=== PATIENT | male | born 1955 | race Asian ===

== ENCOUNTER 2020-04-14 09:40 | Outpatient (NON) | payer BC, SELFPAY ==
[2020-04-14 22:05] LABS: SARS-CoV-2 RNA PCR Negative
== END 2020-04-14 09:41 ==
PROVIDERS: PCP Emergency Medicine; Visit Provider Emergency Medicine
DX: Z20.822 Contact with and (suspected) exposure to COVID-19 (principal)
CPT/HCPCS: C9803; U0003; U0005

== ENCOUNTER → 2020-10-18 06:37 | Outpatient (CLI) | payer MEDICARE, SELFPAY ==
[2020-10-18 18:26] LABS: SARS-CoV-2 RNA PCR Negative
== END ==
PROVIDERS: PCP Family Medicine; Visit Provider Nurse Practitioner Family
DX: R05 Cough (principal); Z20.822 Contact with and (suspected) exposure to COVID-19
CPT/HCPCS: C9803; U0003; U0005

== ENCOUNTER → 2021-02-18 02:32 | Outpatient (CLI) | payer MEDICARE, SELFPAY ==
[2021-02-18 17:58] LABS: SARS-CoV-2 RNA PCR Negative
== END ==
PROVIDERS: PCP Family Medicine; Visit Provider Family Medicine
DX: R05.9 Cough, unspecified (principal); Z20.822 Contact with and (suspected) exposure to COVID-19
CPT/HCPCS: C9803; U0003; U0005

== ENCOUNTER → 2021-03-17 09:02 | Outpatient (CLI) | payer MEDICARE, SELFPAY ==
[2021-03-18 13:32] LABS: SARS-CoV-2 RNA PCR Negative
== END ==
PROVIDERS: PCP Family Medicine; Visit Provider Nurse Practitioner
DX: Z20.822 Contact with and (suspected) exposure to COVID-19 (principal)
CPT/HCPCS: C9803; U0003; U0005

== ENCOUNTER 2021-05-04 08:27 | Outpatient (CLI) | payer MEDICARE, SELFPAY ==
--- NOTE | ~2021-05-04 | NM_ITS ---
EXAMINATION: NM stress w perf spect multi DATE: 05/04/2021 11:06 INDICATION: Other chest pain. TECHNIQUE: Rest images were obtained following intravenous administration of 11.5 mCi Tc99m tetrofosm in (Myoview). The patient performed an exercise activity. At peak exercise, 34.3 mCi Tc99m tetrofosmi n (Myoview) was administered intravenously, and stress images were obtained. Data was reconstructed i nto short axis and horizontal and vertical long axis SPECT images. Gated SPECT images were also obtai mayo. COMPARISON: CT abdomen 09/29/2009 FINDINGS: There is no definite reversible or fixed perfusion abnormality to suggest ischemia or infar ction. There is no segmental wall motion abnormality. Left ventricular ejection fraction measures > 70%. IMPRESSION: 1. No definite ischemia or infarct. 2. Normal left ventricular ejection fraction measuring >70%. Reviewed, dictated and finalized at location A. ALMIC TECH
--- NOTE | 2021-05-04 08:55 | EST_ITS ---
Patient Info Name: Lj Rouse Age: 65 years : 1955 Gender: Male Ht: 64 in Wt: 138 lbs BSA: 1.69 m2 HR: 80 bpm BP: 153 / 76 mmHg Heart Rhythm: Sinus Rhythm Exam Date: 05/04/2021 10:00 AM Exam Location: [facility] Stress Patient Status: Outpatient Admit Date: 05/04/2021 Staff Ordering Physician: Nelson Ayala MD Attending Provider: Nelson Ayala MD Exercise Technologist: Tash Stock CT Exercise Physician: Tim Norton DO Exam Type: CA stress test treadmill w NM Study Info Indications R07.9 - Chest pain, unspecified A nuclear stress test was performed. Summary 1. 1. Negative Ry exercise stress test for ischemic ST changes by ECG criteria. 2. 2. Good functional capacity, achieving 12 METs of workload. 3. 3. Appropriate HR response to exercise. 4. 4. Appropriate HR recovery at 1 minute post exercise. 5. 5. Nuclear scan to follow and will be reported separately. Please correlate with it. 6. 6. Patient informed of the above results. Protocol: Ry Stress ECG Details Stage: REST Duration (min): 8 min : 46 sec Speed (mph): 0.0 Grade (%): 0 HR (bpm): 76 SBP (mmHg): 153 DBP (mmHg): 76 METS: --- Stage: STAGE 1 Duration (min): 1 min : 0 sec Speed (mph): 1.7 Grade (%): 10 HR (bpm): 88 SBP (mmHg): 153 DBP (mmHg): 76 METS: --- Stage: STAGE 1 Duration (min): 2 min : 0 sec Speed (mph): 1.7 Grade (%): 10 HR (bpm): 94 SBP (mmHg): 153 DBP (mmHg): 76 METS: --- Stage: STAGE 1 Duration (min): 3 min : 0 sec Speed (mph): 1.7 Grade (%): 10 HR (bpm): 98 SBP (mmHg): 177 DBP (mmHg): 72 METS: --- Stage: STAGE 2 Duration (min): 1 min : 0 sec Speed (mph): 2.5 Grade (%): 12 HR (bpm): 99 SBP (mmHg): 177 DBP (mmHg): 72 METS: --- Stage: STAGE 2 Duration (min): 2 min : 0 sec Speed (mph): 2.5 Grade (%): 12 HR (bpm): 100 SBP (mmHg): 153 DBP (mmHg): 73 METS: --- Stage: STAGE 2 Duration (min): 3 min : 0 sec Speed (mph): 2.5 Grade (%): 12 HR (bpm): 108 SBP (mmHg): 153 DBP (mmHg): 73 METS: --- Stage: STAGE 3 Duration (min): 1 min : 0 sec Speed (mph): 3.4 Grade (%): 14 HR (bpm): 117 SBP (mmHg): 164 DBP (mmHg): 78 METS: --- Stage: STAGE 3 Duration (min): 2 min : 0 sec Speed (mph): 3.4 Grade (%): 14 HR (bpm): 126 SBP (mmHg): 164 DBP (mmHg): 78 METS: --- Stage: STAGE 3 Duration (min): 3 min : 0 sec Speed (mph): 3.4 Grade (%): 14 HR (bpm): 131 SBP (mmHg): 174 DBP (mmHg): 78 METS: --- Stage: STAGE 4 Duration (min): 1 min : 0 sec Speed (mph): 4.2 Grade (%): 16 HR (bpm): 149 SBP (mmHg): 174 DBP (mmHg): 78 METS: --- Stage: STAGE 4 Duration (min): 1 min : 0 sec Speed (mph): 4.2 Grade (%): 16 HR (bpm): 149 SBP (mmHg): 174 DBP (mmHg):
== END 2021-05-04 08:28 | disposition home or self-care (01) ==
PROVIDERS: PCP Family Medicine; Visit Provider Family Medicine
DX: R07.89 Other chest pain (principal)
CPT/HCPCS: 78452; 93017; A9502

== ENCOUNTER → 2021-08-04 12:16 | Outpatient (CLI) | payer MEDICARE, SELFPAY ==
--- NOTE | ~2021-08-04 | XR_ITS ---
EXAMINATION: XR chest 2V DATE: 08/04/2021 12:28 INDICATION: Cough, unspecified. TECHNIQUE: Frontal and lateral views of the chest were obtained. COMPARISON: CT abdomen 09/29/2009 FINDINGS: The chest demonstrates clear lungs without pneumonia, pleural effusion, or pneumothorax. Th e heart size is normal. IMPRESSION: 1. No acute cardiopulmonary disease. Reviewed, dictated and finalized at location B.
== END ==
PROVIDERS: PCP Family Medicine; Visit Provider Family Medicine
DX: R05.9 Cough, unspecified (principal)
CPT/HCPCS: 71046

== ENCOUNTER 2022-03-02 11:00 | Outpatient (RCR) | payer MEDICARE, SELFPAY ==
--- NOTE | 2022-02-18 15:42 | PTOPEVAL1 ---
Assessment and note entered by Jordyn Rubi, PT Evaluation Information Assessment Status Evaluation Diagnosis dizziness and giddiness Onset Jan 2022 Subjective Information Reports has had ear fullness multiple times before . Has had dizziness but usually goes away quickly. Also feels this comes on with the cold weather Reported Pain Level Pain Score 0: Self Report Assessment PT Clinical Summary Pt presents w/ c/o dizziness that began approx one month ago. He has since seen his eye doctor and had normal findings. Reports his ENT saw discoloration in his right ear. He reports had a dose of anti-biotics that significantly reduced his symptoms. He tried Meclazine for symptoms but it made him drowsy. He reports right ear aural fullness, had (+) symptoms right roll testing and left reverse testing with right downward torsional nystagmus. Pt is also going to be out of town soon and then out of country for multiple months. Significant time spent with patient discussing inner ear anatomy, his current progression of symptoms, compensatory techniques to minimize symptoms, and HEP. Plan of Care Interventions Neuro Re-education,Therapeutic Activities, Therapeutic Exercise PT Services Indicated Yes Treatment Frequency and 2x weekly x 4-6 weeks Duration These treatments will address the objective and functional deficits as defined above. The patient will be advanced safely and appropriately in order for the patient to progress towards his/her prior level of function. Additional exercises will be introduced and as well as a comprehensive home exercise program upon discharge, if needed, ?to ensure carryover of functional gains achieved in the clinic. This treatment plan has been reviewed and agreement upon by the patient.
--- NOTE | 2022-03-04 10:06 | PCPTNOTE ---
Patient and therapist discussed plan after ENT appt. Cancelled secondary to therapist request to assess tolerance to new ENT medication and plan. Advised to call next week and cancel if symptoms have resolved. If not, will continue therapy to prepare for trip overseas.
--- NOTE | 2022-03-30 14:40 | PCPTNOTE ---
Admitting Provider: Attending Provider: Sena Govea NP Patient:Lj Rouse Date of :1955 Patient has not returned for any further treatments since 03/02/2022, therefore (he/she) will be discharged at this time. Patient?s initial visit was on 02/18/2022 09:00. Pt went to ENT who was able to correct dizziness issue. Pt cancelled his reevaluation for today stating he is doing well. Thus pt is being discharged from therapy at this time. Thank you for referring this patient to [facility]. Please review, sign, date and return this discharge summary. I have been updated about the patient's current status and I agree with discharge from the above service at this time. Referring Physician Date
== END 2022-04-13 11:14 | disposition home or self-care (01) ==
LOC: ANHGOSHPT 11:00
PROVIDERS: PCP Family Medicine; Visit Provider Nurse Practitioner
DX: R42 Dizziness and giddiness (principal)
CPT/HCPCS: 97110; 97112; 97162

== ENCOUNTER → 2022-03-24 09:26 | Outpatient (CLI) | payer MEDICARE, SELFPAY ==
--- NOTE | ~2022-03-24 | CT_ITS ---
EXAMINATION: CT sinus wo con DATE: 03/24/2022 09:59 INDICATION: Chronic sinusitis. Nasal polyps. Frequent sinus infections. Vertigo for 9 weeks. TECHNIQUE: Computed tomography (CT) of the paranasal sinuses was performed without contrast. Iterativ e reconstruction technique was employed. Exam dose: 411.72 mGy-cm total exam DLP. COMPARISON: None FINDINGS: There is rightward deviation of the nasal septum. The inferior nasal turbinates are moderat jose angel prominent bilaterally. There is soft tissue thickening in both frontoethmoid areas and prominent patchy soft tissue thickeni ng of the ethmoid septae bilaterally. There is mild mucoperiosteal thickening of both maxillary sinuses. The sphenoid sinuses are normally developed and aerated. The maxillary ostium and infundibulum are patent bilaterally. There is opacification of a couple of posterior left mastoid air cells; the mastoid air cells otherwi se are normally developed and aerated bilaterally. Middle and inner ear apparatus appear normal bilaterally. IMPRESSION: Bilateral frontal, ethmoid and maxillary sinus mucoperiosteal thickening Rightward deviation of nasal septum Reviewed, dictated and finalized at Location A. 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
== END ==
PROVIDERS: PCP Family Medicine; Visit Provider Otolaryngology
DX: J33.9 Nasal polyp, unspecified (principal); J32.9 Chronic sinusitis, unspecified; J34.2 Deviated nasal septum
CPT/HCPCS: 70486

== ENCOUNTER 2022-09-27 08:29 | Day surgery (SDC) | payer MEDICARE, SELFPAY ==
[2022-09-07 14:39] VITALS: BMI 24.2
--- NOTE | 2022-09-24 12:56 | WPDANESEPPF ---
Anes - Initial Pre Proc Eval Procedure: Operation Date: 09/27/22 11:00 Proposed Procedures p Esophagogastroduodenoscopy - Martin Velazquez MD Date/Time: 09/24/22 12:56 Surgeon: Martin Velazquez MD Pre Op Diagnosis: Gerd without Esophagitis, Post Nasal Drip Patient Data Age: 66 Gender: M Height: 1.63 m Weight: 64 kg Allergies Allergy/AdvReac Type Severity Reaction Status Date / Time lisinopril AdvReac Mild Cough Verified 09/27/22 09:51 Home Medications Medication Instructions Recorded Confirmed Type gebbydew-jcknndoz-zdmhc acid 400 1 tablet PO DAILY 05/11/19 09/27/22 History mcg-vit K 20 mcg-lycop 300 mcg tablet (One-A-Day Men's Multivitamin) ascorbate calcium (vitamin C) 500 1 g PO DAILY 02/16/21 09/27/22 History mg tablet blood-glucose meter #1 ea 06/02/21 06/17/22 Rx cetirizine 10 mg capsule (Zyrtec) 10 mg PO DAILY PRN Allergic 08/04/21 09/27/22 History Reaction lancets #200 ea 02/01/22 06/17/22 Rx blood sugar diagnostic #100 ea 03/08/22 06/17/22 Rx pantoprazole 40 mg tablet,delayed 40 mg PO DAILY #90 tabs 06/21/22 09/27/22 Rx release atorvastatin 20 mg tablet 20 mg PO QHS #90 tabs 07/27/22 09/27/22 Rx losartan 25 mg tablet 25 mg PO DAILY #90 tabs 08/31/22 09/27/22 Rx metformin 500 mg tablet,extended 500 mg PO BID 09/07/22 09/27/22 History release 24 hr Patient hx anesthesia problems: none Family hx anesthesia problems: none Results Review: All pre-operative results and documents have been reviewed as part of the pre-operative evaluation. FORMERLY [facility], [facility] Past Medical History Medical History (Updated 09/02/22 @ 13:17 by Martin Velazquez MD) Colon cancer screening Diabetes Diastolic dysfunction Environmental allergies GERD (gastroesophageal reflux disease) HLD (hyperlipidemia) Microalbuminuria Mild aortic stenosis Vocal cord polyps Family History Family History Father Diabetes mellitus Kidney failure Mother Ectopic Social History Social History Smoking status: Never smoker Second hand tobacco smoke exposure: No Alcohol intake: never Substance use: never Substance use type: does not use Lack of Transportation: No Lack of Food: Never True Current Housing: I Have Housing Concerned About Future Housing: No Difficulty Paying Gas/Electric Bills: No Difficulty Paying for Meds: No Currently Unemployed: No Education: Bachelor's Degree Difficulty w/ Childcare or Family Care: No Living arrangements: with family Occupation/Education: retired Gender identity (if verbalized by the patient): Male Sexual Orientation (if Verbalized by the Patient): Straight or Heterosexual Spiritual care concerns: No Agree to blood products: Yes Anes - Eval Final PreProcedure Day of Procedure 09/24/22 12:56 Patient weight: normal Heart: regular rate and rhythm Lungs: clear to auscultation and normal air movement Airway: Mallampati scale class II Neurological: alert and oriented Last oral intake: >/= 8 hours ASA classification: III Emergent: no Anesthetic plan: proceed Anesthesia type and monitoring: general GIVS and standard monitoring Results Review: All pre-operative results and documents have been reviewed as part of the pre-operative evaluation. Informed Consent: The patient's anesthetic plan and its attendant risks and benefits were discussed with the patient/family/POA. Questions were solicited and answers provided to the satisfaction of the patient/family/POA.
[2022-09-27 09:57] VITALS: BP 133/71; PULSE 62; RESP 16; TEMP 36.6; O2SAT 100
[2022-09-27] MEDS: LACTATED RINGERS 1,000 ML 150 ML IV CONT (10:07)
[2022-09-27 10:11] LABS: Glucose Point of Care 128 mg/dl (65-105)
--- NOTE | 2022-09-27 10:35 | WPDHPUPDATE1 ---
History and Physical Update Update Date/Time: 09/27/22 10:35 History and Physical has been reviewed, including an updated exam of the patient. There are NO changes in the patient's condition. Risks, benefits, and alternatives have been discussed and questions answered. Patient agrees to proceed with procedure.
[2022-09-27 10:45] VITALS: BP 103/62; PULSE 69; RESP 16; O2SAT 98
[2022-09-27 10:55] VITALS: BP 101/68; PULSE 64; RESP 16; O2SAT 100
[2022-09-27 11:05] VITALS: BP 114/75; PULSE 65; RESP 16; O2SAT 100
--- NOTE | 2022-09-27 11:11 | WPDANESPN ---
Anes - Prog Note Post-Op Date/Time: 09/27/22 11:11 Cardiovascular status: normal Respiratory status: normal Airway patency: baseline Mental status: baseline Post-Op hydration status: normal Vital Signs: Last Vital Signs Temp 36.6 C 09/27/22 09:57 Pulse 65 09/27/22 11:05 Resp 16 09/27/22 11:05 BP 114/75 09/27/22 11:05 Pulse Ox 100 09/27/22 11:05 O2 Del Method Room Air 09/27/22 11:05 Pain Score (VAS): 0 09/27/22 10:05 POC Capillary Glucose 128 H Post-procedural complaints: none Patient Feedback: Patient satisfied with anesthetic care. Other Findings: Patient vital signs back to baseline. Patient denies nausea and vomiting. Patient's pain under control. Patient OK for discharge.
== END 2022-09-27 11:14 | disposition home or self-care (01) ==
PROVIDERS: PCP Family Medicine; Visit Provider Internal Medicine Gastroenterology
PROC: 0DJ08ZZ Inspection of Upper Intestinal Tract, Via Natural or Artificial Opening Endoscopic (ICD-10-PCS; CPT 43235; principal; 2022-09-27 11:00)
DX: K21.9 Gastro-esophageal reflux disease without esophagitis (principal)
CPT/HCPCS: 43239

== ENCOUNTER 2022-09-27 09:00 | Outpatient (NON) | payer MEDICARE, SELFPAY | END 2022-09-27 09:01 | disposition home or self-care (01) | LOC: ANHLAB 09-28 07:19 | PROVIDERS: PCP Family Medicine; Visit Provider Internal Medicine Gastroenterology | DX: K21.9 Gastro-esophageal reflux disease without esophagitis (principal) | CPT/HCPCS: 88305 ==

== ENCOUNTER 2022-09-27 18:08 | Inpatient (IN) | payer MEDICARE, SELFPAY ==
[2022-09-27] VITALS (22 sets, daily range): BP systolic 84–123; BP diastolic 56–71; PULSE 72–108; RESP 14–19; TEMP 36.8; O2SAT 97–100; BMI 26.9; BMI 24.5
--- NOTE | ~2022-09-27 | XR_ITS ---
EXAMINATION: XR chest 1V portable DATE: 09/27/2022 19:30 INDICATION: Syncope. TECHNIQUE: A single frontal view of the chest was obtained. COMPARISON: Chest 2 views 08/04/2021 FINDINGS: The chest demonstrates clear lungs without pneumonia, pleural effusion, or pneumothorax. Th e heart size is normal. IMPRESSION: 1. No acute cardiopulmonary disease. Reviewed, dictated and finalized at location E.
--- NOTE | ~2022-09-27 | CT_ITS ---
EXAMINATION: CT abdomen pelvis wo con DATE: 09/28/2022 14:10 INDICATION: Acute blood loss. TECHNIQUE: Computed tomography (CT) of the abdomen and pelvis was performed without intravenous contr ast. Automated exposure control and iterative reconstruction technique were employed. The dose-length product was 282.50 mGy-cm. COMPARISON: CT abdomen 09/29/2009 FINDINGS: The visualized portions bases demonstrate mild atelectasis. No pleural effusion. The heart size is normal. There are coronary artery calcifications. No pericardial effusion. The liver, gallbla dder, spleen, pancreas, adrenal glands, and kidneys are normal. There is no urolithiasis. There are n o dilated loops of bowel. The appendix is normal. Aortic atherosclerosis is noted. There are no patho logically enlarged lymph nodes. There is no free intraperitoneal fluid. There is mild lumbar spondylo sis. IMPRESSION: 1. No etiology for anemia. Reviewed, dictated and finalized at location E. IMPRESSION: 1. No etiology for anemia.
--- NOTE | ~2022-09-27 | CT_ITS ---
EXAMINATION: CT brain wo con DATE: 09/27/2022 19:42 INDICATION: Syncope. TECHNIQUE: Computed tomography (CT) of the head was performed without intravenous contrast. The mA wa s adjusted according to patient size. Iterative reconstruction technique was employed. The dose-lengt h product was 605.33 mGy-cm. COMPARISON: None FINDINGS: There is no intracranial hemorrhage, acute infarction, or abnormal intracranial mass lesion . The ventricles are normal in size. There is mucosal thickening in the paranasal sinuses. There is a trace left mastoid effusion. The orbits are normal. IMPRESSION: 1. Normal brain. Reviewed, dictated and finalized at location E. IMPRESSION: 1. Normal brain.
--- NOTE | 2022-09-27 18:50 | ECG_ITS ---
Measurements Intervals [place] Rate: 70 P: 47 AR: 185 QRS: -19 QRSD: 98 T: 43 QT: 362 QTc: 393 Interpretive Statements SINUS RHYTHM INCOMPLETE RIGHT BUNDLE BRANCH BLOCK BORDERLINE R WAVE PROGRESSION, ANTERIOR LEADS BORDERLINE ECG NO PREVIOUS ECG AVAILABLE FOR COMPARISON Electronically Signed On 09-27-2022 21:10:48 CDT by Tim Norton D.O.
--- NOTE | 2022-09-27 19:18 | ED.SYNCOPE ---
HPI - Syncope General Chief Complaint: Syncope Stated Complaint: syncopal episode Time Seen by Provider: 09/27/22 18:28 History of Present Illness HPI narrative: Patient is a 66-year-old male presenting with a syncopal episode. Patient states that he had an endoscopy done this morning. He felt fine other than some epigastric discomfort. He went home and was able to eat a small meal and drink some water. States that he went upstairs to lay down and he then syncopized. States that he remembers feeling a bit lightheaded prior to the episode. States that he was really sweaty afterwards. His heard a thump and went to check on him and found him on the floor. No seizure-like activity. No urinary incontinence or tongue biting. No chest pain or shortness of breath or palpitations. He continues to complain of mild epigastric discomfort but denies further complaints. Related Data Home Medications Medication Instructions Recorded Confirmed jeeknpsc-mangzgnx-qanok acid 400 1 tablet PO DAILY 05/11/19 09/27/22 mcg-vit K 20 mcg-lycop 300 mcg tablet (One-A-Day Men's Multivitamin) ascorbate calcium (vitamin C) 500 1 g PO DAILY 02/16/21 09/27/22 mg tablet dorzolamide 22.3 mg-timolol 6.8 1 drp EACH EYE BID 09/27/22 09/27/22 mg/mL eye drops pantoprazole 40 mg tablet,delayed 20 mg PO BID 09/27/22 09/27/22 release Allergies Allergy/AdvReac Type Severity Reaction Status Date / Time lisinopril AdvReac Mild Cough Verified 09/27/22 09:51 Review of Systems Review of Systems: All systems reviewed & are unremarkable except as noted in HPI and below [facility] Past Medical History Medical History (Updated 10/04/22 @ 16:59 by Alma Grimes MD) Acute blood loss anemia Colon cancer screening Diabetes Diastolic dysfunction Environmental allergies GERD (gastroesophageal reflux disease) HLD (hyperlipidemia) Microalbuminuria Mild aortic stenosis Vocal cord polyps Family History Family History Father Diabetes mellitus Kidney failure Mother Ectopic Social History Social History Smoking status: Never smoker Second hand tobacco smoke exposure: No Alcohol intake: never Substance use: never Substance use type: does not use Lack of Transportation: No Lack of Food: Never True Current Housing: I Have Housing Concerned About Future Housing: No Difficulty Paying Gas/Electric Bills: No Difficulty Paying for Meds: No Currently Unemployed: No Education: Bachelor's Degree Difficulty w/ Childcare or Family Care: No Living arrangements: with family Occupation/Education: retired Gender identity (if verbalized by the patient): Male Sexual Orientation (if Verbalized by the Patient): Straight or Heterosexual Spiritual care concerns: No Agree to blood products: Yes Exam Narrative: GENERAL: Well-appearing, well-nourished, and in no acute distress. Pleasant and cooperative HEAD: Normocephalic, atraumatic. EYES: PERRLA and EOMI. ENT: Nares clear, no rhinorrhea or epistaxis. Mucous membranes moist. NECK: Supple. CHEST: Clear to auscultation. No respiratory distress. HEART: Regular rate and rhythm. No murmur heard ABDOMEN: Soft, nontender, nondistended EXTREMITIES: Normal range of motion. No edema. SKIN: Warm, dry, no rash. NEURO: No focal deficits. Alert and oriented x3. PSYCH: Normal mood and affect. Course Vital Signs Vital signs: Vital Signs Temperature 98.3 F 09/27/22 18:08 Pulse Rate 75 09/27/22 18:08 Respiratory Rate 16 09/27/22 18:08 Blood Pressure 112/67 09/27/22 18:08 Pulse Oximetry 98 09/27/22 18:08 Oxygen Delivery Room Air 09/27/22 18:08 Temperature 98.1 F 09/30/22 06:00 Pulse Rate 80 09/30/22 06:00 Respiratory Rate 18 09/30/22 06:00 Blood Pressure 128/75 09/30/22 06:00 Pulse Oximetry 100
[2022-09-27] MEDS: SODIUM CHLORIDE 0.9% IV 1,000 ML 999 ML IV CONT ×2 (19:21→21:34)
[2022-09-27 19:30] LABS: Basophils Absolute Auto 0.1 K/mm3 (0.0-0.1); Basophils Percent Auto 0.5 % (0.2-1.2); Eosinophils Absolute Auto 0.2 K/mm3 (0-0.3); Eosinophils Percent Auto 1.5 % (0-4.4); Hematocrit 32.9 % (42.0-52.0); Hemoglobin 11.2 g/dL (14.0-18.0); Immature Granulocyte Absolute 0.06 K/mm3 (0.00-0.031); Immature Granulocyte Percent A 0.4 % (0-0.5); Lymphocytes Absolute Auto 3.82 K/mm3 (0.9-3.2); Lymphocytes Percent Auto 23.9 % (18.3-44.2); Mean Corpuscular Hemoglobin 31.4 pg (26-34); Mean Corpuscular Volume 92.2 fl (80-100); Mean Platelet Volume 9.4 fl (7.4-10.4); Monocytes Absolute Auto 0.8 K/mm3 (0.1-0.6); Neutrophils Percent Auto 68.7 % (45.5-73.1); Platelet Count Result 219 k/mm3 (150-375); Red Blood Count 3.57 M/mm3 (4.6-6.20); Red Cell Distribution Width 12.5 % (11.5-14.5)
[2022-09-27 19:42] LABS: INR 1.2; Prothrombin Time 15.7 Seconds (11.1-14.7)
[2022-09-27 19:43] LABS: Alanine Aminotransferase 38 U/L (6-50); Alkaline Phosphatase 51 U/L (38-126); Anion Gap 1 mmol/L (8-16); Aspartate Amino Transferase 43 U/L (17-59); Bilirubin,Total 0.6 mg/dL (0.2-1.3); Blood Urea Nitrogen 31 mg/dL (9-20); Calcium 7.2 mg/dL (8.4-10.2); Carbon Dioxide 23 mmol/L (22-30); Chloride 105 mmol/L (98-107); Estimated Glomerular Filt Rate > 60; Glucose 173 mg/dL (65-110); Lipase 174 U/L (23-300); Magnesium 2.1 mg/dL (1.6-2.3); Partial Thromboplastin Time 28.8 SECONDS (22.3-36.8); Potassium 4.5 mmol/L (3.4-5.0); Sodium 129 mmol/L (137-145)
[2022-09-27 19:44] LABS: Lactic Acid Reflex 2.9 mmol/L (0.7-2.0)
[2022-09-27] MEDS: BELLADONNA ALK/PHENOB ELIX 10 ML, MAG HYDROX/ALUMINUM HYD/SIMETH 30 ML, LIDOCAINE HCL 2... PO (19:51)
[2022-09-27] MEDS: ONDANSETRON INJ 4 MG/2 ML VIAL IV PUSH (19:51)
[2022-09-27 19:54] LABS: Troponin I < 0.012 ng/mL (0.000-0.034)
[2022-09-27 21:05] LABS: Appearance Urine Clear (Clear); Bilirubin Urine Negative (Negative); Blood Urine Negative (Negative); Color Urine Yellow (Yellow); Glucose Urine UA 2+ mg/dL (Negative); Ketones Urine 1+ mg/dL (Negative); Leukocyte Esterase Ur Negative LEU/UL (Negative); Nitrate Urine Negative (Negative); Protein Urine Negative (Negative); Specific Grav Ur 1.016 (1.001-1.035); Urobilinogen Urine 0.2 mg/dL (<2.0); pH Urine 6.5 (5.0-9.0)
[2022-09-27 21:06] LABS: Add Urine Microscopic? NO
--- NOTE | 2022-09-27 21:14 | PM.IMHP ---
H&P: HPI History of Present Illness Date/Time: 09/27/22 21:14 Chief Complaint: Syncope Narrative: This is a 66-year-old male with past medical history significant for GERD, type 2 diabetes mellitus, dyslipidemia, glaucoma. patient had endoscopic procedure performed earlier in the day for screening surveillance for his GERD went home every sent seem to be okay, patient has been in his usual state of health, patient was found down by his after hearing a loud noise, in emergency room patient was found to have low blood pressure after receiving 3 L of NS patient got up to go to the bathroom and he was still unstable on lightheaded and repeat orthostatics were positive, patient denies any fevers, rigors, chills, chest pain, loss of vision or change of vision, no palpitations no focal sensorimotor deficit, has been his usual state of health. Patient has been placed in observation for further evaluation ,management and treatment EXAMINATION: XR chest 1V portable DATE: 09/27/2022 19:30 INDICATION: Syncope. TECHNIQUE: A single frontal view of the chest was obtained. COMPARISON: Chest 2 views 08/04/2021 FINDINGS: The chest demonstrates clear lungs without pneumonia, pleural effusion, or pneumothorax. The heart size is normal. IMPRESSION: 1. No acute cardiopulmonary disease. EXAMINATION: CT brain wo con DATE: 09/27/2022 19:42 INDICATION: Syncope. TECHNIQUE: Computed tomography (CT) of the head was performed without intravenous contrast. The mA was adjusted according to patient size. Iterative reconstruction technique was employed. The dose-length product was 605.33 mGy-cm. COMPARISON: None FINDINGS: There is no intracranial hemorrhage, acute infarction, or abnormal intracranial mass lesion. The ventricles are normal in size. There is mucosal thickening in the paranasal sinuses. There is a trace left mastoid effusion. The orbits are normal. IMPRESSION: 1. Normal brain. Review of Systems Review of Systems: syncope Constitutional: Constitutional: Denies chills, Denies fatigue, Denies fever(s), Denies frequent falls, Denies malaise, Denies night sweats, Denies poor appetite and Denies weakness Eyes: Eyes: Denies change in vision ENT: Denies dysphagia and Denies odynophagia Cardiovascular: Cardiovascular: Denies chest pain, Reports lightheadedness, Denies radiating jaw, neck or arm pain and Denies palpitations Respiratory: Respiratory: Denies cough and Denies dyspnea Gastrointestinal: Gastrointestinal: Denies abdominal pain, Denies dyspepsia, Denies diarrhea, Denies nausea and Denies vomiting Genitourinary: Genitourinary: Denies dysuria Musculoskeletal: Musculoskeletal: Denies myalgias Integumentary/Breasts: Skin/Breast: Denies rash Neurologic: Reports syncope, Denies focal weakness and Denies Sensory deficit (Neuro) Psychiatric: Psychiatric: Reports no additional psychiatric complaints and Reports as per HPI Endocrine: Endocrine: Denies cold intolerance, Denies flushing, Denies polyphagia, Denies polydipsia and Denies palpitations Hematologic/Lymphatic: Hematologic/Lymphatic: Reports no additional hematologic/lymphatic complaints and Reports as per HPI Allergic/Immunologic: Allergic/Immunologic: Reports no additional allergic/immunologic complaints and Reports as per HPI PMFSH Past Medical History Medical History Colon cancer screening Diabetes Diastolic dysfunction Environmental allergies GERD (gastroesophageal reflux disease) HLD (hyperlipidemia) Microalbuminuria Mild aortic stenosis Vocal cord polyps Family History Family History Father Diabetes mellitus Kidney failure Mother Ectopic Social History Social History Smoking status: Never smoker Second hand tobacco smoke exposure: No [place]
[2022-09-27 22:28] LABS: Reflex Lactic Acid Yes or No Add Lactic
[2022-09-27 23:19] LABS: Lactic Acid 2.3 mmol/L (0.7-2.0)
--- NOTE | 2022-09-27 23:43 | ADMGEN ---
This patient, Lj Rouse, was admitted to [address] [place] [address] Room 304-02. Patient/family oriented to hospital policies and general routines including ID bracelet, bed and alarms, visiting hours, pain management, procedures, bathroom and other care routines, personal items, smoking policy, room service/diet, and visiting hours. Information on how to activate the Rapid Response Team has been discussed. Patient/Family are encouraged to report perceived risks to care and to ask questions if they do not understand what they are told or what they should do.
[2022-09-27 23:54] LABS: Troponin I < 0.012 ng/mL (0.000-0.034)
[2022-09-28] VITALS (8 sets, daily range): BP systolic 110–121; BP diastolic 55–68; PULSE 96–118; RESP 18–20; TEMP 36.8–37.3; O2SAT 98–100
--- NOTE | 2022-09-28 | ECHO_ITS ---
Patient Info Name: Lj Rouse Age: 66 years : 1955 Gender: Male Ht: 64 in Wt: 140 lbs BSA: 1.70 m2 HR: 110 bpm BP: 110 / 62 mmHg Heart Rhythm: Tachycardia Technical Quality: Fair Exam Date: 09/28/2022 8:58 AM Exam Location: [facility] Patient Status: Inpatient Admit Date: 09/27/2022 Staff Ordering Physician: Marcelo Au MD Network Intern: Megan Platt RDCS Attending Provider: Marcelo Au MD Referring Physician: Roe PAGAN; Exam Type: CA echo doppler color flow Study Info Indications - syncope Complete two-dimensional, color flow and Doppler transthoracic echocardiogram is performed. Summary 1. Complete two-dimensional, color flow and Doppler transthoracic echocardiogram is performed. 2. Normal left ventricular size with mild concentric hypertrophy. Hyperdynamic left ventricular systolic function with an ejection fraction greater than 70%. Grade 2 diastolic dysfunction is present. 3. Left atrial chamber dimension is mildly enlarged. 4. Possible mild aortic valve stenosis versus elevated aortic valve velocity of 2.6 m/sec due to hyperdynamic state. Mean gradient 15 mmHg. 5. Possible mild pulmonic stenosis with mildly elevated transvalvular velocity of 2.0 m/sec, which may also be due to the patient's hyperdynamic state. 6. Sinus tachycardia. Left Ventricle Left ventricular chamber dimension is normal. Left ventricular systolic function is hyperdynamic, estimated at >70%. There is mildly increased left ventricular wall thickness. Left ventricular septal wall motion is normal. The left ventricular diastolic function is grade II diastolic dysfunction. Right Ventricle Right ventricular chamber dimension is normal. Right ventricular systolic function is normal. Left Atria Left atrial chamber dimension is mildly enlarged. Right Atria Right atrial chamber dimension is normal. Aortic Valve The aortic valve is trileaflet. There is mild aortic valve sclerosis. Possible mild aortic valve stenosis versus elevated aortic valve velocity of 2.6 m/sec due to hyperdynamic state. Mean gradient 15 mmHg. There is no aortic valve regurgitation. Pulmonic Valve The pulmonic valve is normal. There is mild pulmonic valve stenosis. There is no pulmonic regurgitation. Mitral Valve The mitral valve has normal leaflets. There is no mitral valve stenosis. There is no mitral valve regurgitation. Tricuspid Valve The tricuspid valve leaflets are normal. There is no significant tricuspid valve stenosis. There is trace tricuspid valve regurgitation. No pulmonary hypertension, estimated pulmonary arterial systolic pressure is 25 mmHg. Pericardium/Pleural The pericardium appears normal. There is no pericardial effusion. Inferior Vena Cava Normal inferior vena cava with >50% collapse upon inspiration consistent with Empty right atrial pressure, 10 mmHg. Aorta The aortic root size at the sinus of Valsalva is normal. The prox ascending aorta size is normal. Left Ventricular Outflow Tract Name Value Normal LVOT 2D LVOT Diameter 1.6 cm LVOT Doppler LVOT Peak Gradient 11 mmHg LVOT Mean Gradient 6 mmHg LVOT VTI
[2022-09-28] MEDS: SODIUM CHLORIDE 0.9% IV 1,000 ML 999 ML IV CONT (02:24)
[2022-09-28 02:48] LABS: Troponin I 0.016 ng/mL (0.000-0.034)
[2022-09-28] MEDS: DEXTROSE 5%/0.45% SOD CHL 1,000 ML 75 ML IV CONT (03:35)
[2022-09-28] MEDS: PANTOPRAZOLE SOD SESQUIHYDRATE 20 MG TAB PO (08:40)
[2022-09-28] MEDS: DORZOLAMIDE/TIMOLOL OPHTH SOL 10 ML BOTTLE 1 DROP EACH EYE ×2 (08:40→20:58)
[2022-09-28 08:48] LABS: Basophils Percent Auto 0.1 % (0.2-1.2); Hematocrit 22.3 % (42.0-52.0); Hemoglobin 7.5 g/dL (14.0-18.0); Immature Granulocyte Absolute 0.03 K/mm3 (0.00-0.031); Immature Granulocyte Percent A 0.4 % (0-0.5); Lymphocytes Absolute Auto 1.79 K/mm3 (0.9-3.2); Mean Corpuscular HGB Conc 33.6 g/dl (32-36); Mean Corpuscular Hemoglobin 31.3 pg (26-34); Mean Corpuscular Volume 92.9 fl (80-100); Mean Platelet Volume 9.7 fl (7.4-10.4); Monocytes Absolute Auto 0.4 K/mm3 (0.1-0.6); Monocytes Percent Auto 5.2 % (2.6-8.5); Neutrophils Absolute Auto 5.3 K/mm3 (1.3-6.7); Neutrophils Percent Auto 70.3 % (45.5-73.1); Platelet Count Result 184 k/mm3 (150-375); Red Cell Distribution Width 13.1 % (11.5-14.5); White Blood Count 7.5 K/mm3 (4.5-10.0)
[2022-09-28 09:01] LABS: Alanine Aminotransferase 27 U/L (6-50); Albumin Level 2.5 g/dL (3.5-5.1); Alkaline Phosphatase 35 U/L (38-126); Anion Gap 1 mmol/L (8-16); Aspartate Amino Transferase 24 U/L (17-59); Bilirubin,Total 0.4 mg/dL (0.2-1.3); Blood Urea Nitrogen 47 mg/dL (9-20); Carbon Dioxide 21 mmol/L (22-30); Chloride 112 mmol/L (98-107); Estimated CRCL calculation 65 ml/min; Estimated Glomerular Filt Rate > 60; Glucose 190 mg/dL (65-110); Potassium 4.5 mmol/L (3.4-5.0); Sodium 134 mmol/L (137-145)
[2022-09-28 13:31] LABS: Hematocrit 21.5 % (42.0-52.0); Hemoglobin 7.3 g/dL (14.0-18.0)
--- NOTE | 2022-09-28 13:54 | PM.IMPN ---
Progress Note: A&P Assessment and Plan (1) Syncope and collapse: Code(s): R55 - Syncope and collapse Status: Acute Assessment and Plan: place in observation in Medical surgical floor IV fluids discontinued Echocardiogram pending CT head revealed normal aging brain He was found to have a hemoglobin and hematocrit of 11.2/32.9 that then dropped to 7.5/2.23 GI was consulted. EKG Rate 70 [place] 185 QRSd 98 QT 362 QTc 393 --[place]-- P 47 QRS -19 T 43 SINUS RHYTHM INCOMPLETE RIGHT BUNDLE BRANCH BLOCK BORDERLINE R WAVE PROGRESSION, ANTERIOR LEADS BORDERLINE ECG NO PREVIOUS ECG AVAILABLE FOR COMPARISON Electronically Signed On 09-27-2022 21:10:48 CDT by Tim Norton D.O. (2) Anemia: Code(s): D64.9 - Anemia, unspecified Status: Acute Assessment and Plan: He was found to have a hemoglobin and hematocrit of 11.2/32.9 that then dropped to 7.5/2.23 GI consulted and appreciate recommendations. Spoke to them on the phone and they have planned for EGD tomorrow morning. Anemia labs, occult stool ordered H&H q.[address] abdomen pelvis to assess for acute bleed. (3) Orthostasis: Code(s): I95.1 - Orthostatic hypotension Status: Acute Assessment and Plan: will hold losartan IV fluids Orthostatics Q shift (4) GERD (gastroesophageal reflux disease): Code(s): K21.9 - Gastro-esophageal reflux disease without esophagitis Status: Acute Assessment and Plan: Pantoprazole 40 mg IV Q 24 hours Status post upper endoscopy (5) Mild aortic stenosis: Code(s): I35.0 - Nonrheumatic aortic (valve) stenosis Status: Acute Assessment and Plan: follow-up in outpatient setting (6) Diastolic dysfunction: Code(s): I51.89 - Other ill-defined heart diseases Status: Acute Assessment and Plan: patient appears to be compensated (7) Diabetes mellitus: Qualifiers: Diabetes mellitus type: type 2 Diabetes mellitus half-way insulin use: without buttermaker continuous churn use Diabetes mellitus complication status: without complication Qualified Code(s): E11.9 - Type 2 diabetes mellitus without complications Code(s): E11.9 - Type 2 diabetes mellitus without complications Status: Acute Assessment and Plan: currently holding metformin insulin sliding scale as needed continue to monitor Subjective Date/time seen: 09/28/22 13:54 Interval history: Patient states that he is feeling much better today. He states that when he is getting up in out of bed he is not experiencing any dizziness or feelings of lightheadedness. He denies chest pain shortness a breath. He denies any visual changes such as blurred vision or diplopia. He was having some palpitations but that has since resolved. Only thing that he mentions is some fatigue but other than that feeling back to himself. Review of Systems Review of Systems: All systems reviewed & are unremarkable except as noted in HPI and below Exam Narrative: GENERAL: Comfortable, no acute distress HENMT: moist mucous membranes EYES: EOM intact b/l NECK: no lymphadenopathy RESPIRATORY: clear to auscultation CARDIO: RRR, tachycardia GI: soft, nontender, bowel sounds present SKIN: no rashes EXTREMITIES: no edema, redness or tenderness Objective Data Vital Signs Vital Signs: Vital Signs - 24 hr 09/27/22 18:08 09/27/22 19:15 09/27/22 19:15 Temperature 98.3 F Pulse Rate 75 75 72 Respiratory Rate 16 17 Blood Pressure 112/67 103/64 Pulse Oximetry 98 98 Oxygen Delivery Room Air 09/27/22 20:36 09/27/22 20:37 09/27/22 20:39 Temperature Pulse Rate 81 90 99 Respiratory Rate Blood Pressure 111/61 115/71 98/64 L Pulse Oximetry Oxygen Delivery 09/27/22 20:00 09/27/22 20:59 09/27/22 18:41 Temperature Pulse Rate 75 92 73 Respiratory Rate 14 14 19 Blood Pressure 123/62 98/64 L Pulse Oximetry 98 99 97
--- NOTE | 2022-09-28 14:26 | WPDGICN ---
Assessment and Plan Assessment and plan (1) Syncope and collapse: Code(s): R55 - Syncope and collapse Status: Acute Assessment and Plan: I thinks most likely explanation is bleeding after biopsies that I obtained from stomach however this is quite uncommon EGD with normal findings otherwise will repeat EGD to assess if any signs of bleeding and treat accordingly CT scan was also ordered IV protonix bid (2) Orthostasis: Code(s): I95.1 - Orthostatic hypotension Status: Acute Assessment and Plan: better after iv fluids (3) Acute blood loss anemia: Code(s): D62 - Acute posthemorrhagic anemia Status: Acute Assessment and Plan: transfuse if hgb <7 (4) PND (post-nasal drip): Code(s): R09.82 - Postnasal drip Status: Acute (5) GERD (gastroesophageal reflux disease): Code(s): K21.9 - Gastro-esophageal reflux disease without esophagitis Status: Acute GI Consult Note Consult date/time: 09/28/22 14:26 Reason for consult: melena, acute blood loss anemia HPI: Lj Rouse is a 66 year old male who just completed outpatient EGD by me, indication was post nasal drip with atypical reflux. EGD was normal and I took random gastric biopsies. He went home and after he got up from [facility] had episode of near syncope. He also noted dark stools and his BP in the ER was in the low side. hgb was normal and most recent 7.3, he is lightheaded. He denies easy bleeding, does not use blood thinners and never had GIB. Review of Systems Constitutional: Comments: orthostatic Eyes: Eyes: Denies blurry vision ENT: Reports Normal hearing present Cardiovascular: Cardiovascular: Reports lightheadedness Respiratory: Respiratory: Denies cough Gastrointestinal: Gastrointestinal: Reports melena Genitourinary: Genitourinary: Denies dysuria Musculoskeletal: Musculoskeletal: Denies neck pain Integumentary/Breasts: Skin/Breast: Denies rash Neurologic: Denies Abnormal speech present Psychiatric: Psychiatric: Denies anxiety [facility] Past Medical History Medical History (Updated 09/28/22 @ 14:29 by Martin Velazquez MD) Acute blood loss anemia Colon cancer screening Diabetes Diastolic dysfunction Environmental allergies GERD (gastroesophageal reflux disease) HLD (hyperlipidemia) Microalbuminuria Mild aortic stenosis Vocal cord polyps Family History Family History Father Diabetes mellitus Kidney failure Mother Ectopic Social History Social History Smoking status: Never smoker Second hand tobacco smoke exposure: No Alcohol intake: never Substance use: never Substance use type: does not use Lack of Transportation: No Lack of Food: Never True Current Housing: I Have Housing Concerned About Future Housing: No Difficulty Paying Gas/Electric Bills: No Difficulty Paying for Meds: No Currently Unemployed: No Education: Bachelor's Degree Difficulty w/ Childcare or Family Care: No Living arrangements: with family Occupation/Education: retired Gender identity (if verbalized by the patient): Male Sexual Orientation (if Verbalized by the Patient): Straight or Heterosexual Spiritual care concerns: No Agree to blood products: Yes Meds Home Medications and Allergies Home Medications Medication Instructions Recorded Confirmed Type lnsemrta-jsvejvnk-jvctz acid 400 1 tablet PO DAILY 05/11/19 09/27/22 History mcg-vit K 20 mcg-lycop 300 mcg tablet (One-A-Day Men's Multivitamin) ascorbate calcium (vitamin C) 500 1 g PO DAILY 02/16/21 09/27/22 History mg tablet atorvastatin 20 mg tablet 20 mg PO QHS #90 tabs 07/27/22 09/27/22 Rx losartan 25 mg tablet 25 mg PO DAILY #90 tabs 08/31/22 09/27/22 Rx metformin 500 mg tablet,extended 500 mg PO BID 09/07/22 09/27/22 History
[2022-09-28 16:48] LABS: Iron 169 ug/dL (49-181)
[2022-09-28 16:58] LABS: Percent Iron Saturation 64 % (20-50)
[2022-09-28 17:09] LABS: Folic Acid 16.1 ng/mL (2.76->20)
[2022-09-28 17:21] LABS: Thyroid Stimulating Hormone Reflex 0.233 uIU/mL (0.465-4.68)
[2022-09-28 18:03] LABS: Free T4 Free Thyroxine Reflex 1.05 ng/dL (0.78-2.19)
[2022-09-28 18:22] LABS: Hematocrit 21.1 % (42.0-52.0); Hemoglobin 7.2 g/dL (14.0-18.0)
[2022-09-28 19:03] LABS: Total Triiodothyronine (T3) 0.86 NG/ML (0.97-1.69)
[2022-09-28] MEDS: ATORVASTATIN 20 MG TABLET PO (20:58)
[2022-09-28] MEDS: PANTOPRAZOLE SODIUM IV 40 MG VIAL IV PUSH (20:58)
[2022-09-29] VITALS (18 sets, daily range): BP systolic 61–125; BP diastolic 28–64; PULSE 63–85; RESP 14–22; TEMP 36.2–37.1; O2SAT 18–100
[2022-09-29 00:59] LABS: Hematocrit 22.4 % (42.0-52.0); Hemoglobin 7.6 g/dL (14.0-18.0)
[2022-09-29 06:47] LABS: Alanine Aminotransferase 25 U/L (6-50); Albumin Level 2.7 g/dL (3.5-5.1); Alkaline Phosphatase 39 U/L (38-126); Anion Gap -2 mmol/L (8-16); Aspartate Amino Transferase 23 U/L (17-59); Bilirubin,Total 0.4 mg/dL (0.2-1.3); Blood Urea Nitrogen 23 mg/dL (9-20); Calcium 7.3 mg/dL (8.4-10.2); Carbon Dioxide 24 mmol/L (22-30); Chloride 112 mmol/L (98-107); Estimated CRCL calculation 65 ml/min; Estimated Glomerular Filt Rate > 60; Glucose 139 mg/dL (65-110); Potassium 3.5 mmol/L (3.4-5.0); Sodium 134 mmol/L (137-145)
[2022-09-29 06:52] LABS: Mean Corpuscular HGB Conc 33.3 g/dl (32-36); Mean Corpuscular Hemoglobin 30.6 pg (26-34); Mean Corpuscular Volume 91.7 fl (80-100); Platelet Count Result 183 k/mm3 (150-375); Red Blood Count 2.29 M/mm3 (4.6-6.20); Red Cell Distribution Width 13.2 % (11.5-14.5); White Blood Count 7.4 K/mm3 (4.5-10.0)
[2022-09-29] MEDS: PANTOPRAZOLE SODIUM IV 40 MG VIAL IV PUSH ×2 (08:36→20:54)
[2022-09-29] MEDS: DORZOLAMIDE/TIMOLOL OPHTH SOL 10 ML BOTTLE 1 DROP EACH EYE ×2 (08:36→20:53)
[2022-09-29 09:23] LABS: IFOB Positive Control Positive; Immunochemical Fecal Occult Bl Positive (N)
--- NOTE | 2022-09-29 10:19 | WPDANESEPPF ---
Anes - Initial Pre Proc Eval Procedure: Operation Date: 09/29/22 12:30 Proposed Procedures p Esophagogastroduodenoscopy - Martin Velazquez MD Date/Time: 09/29/22 10:19 Surgeon: Marcelo Au MD Pre Op Diagnosis: orthostatic hypotension Patient Data Age: 66 Gender: M Height: 1.63 m Weight: 64.9 kg Last Vital Signs Temp 97.2 F L 09/29/22 09:05 Pulse 82 09/29/22 09:05 Resp 18 09/29/22 09:05 BP 125/60 09/29/22 09:05 Pulse Ox 100 09/29/22 09:05 O2 Del Method Room Air 09/29/22 08:00 Allergies Allergy/AdvReac Type Severity Reaction Status Date / Time lisinopril AdvReac Mild Cough Verified 09/27/22 09:51 Home Medications Medication Instructions Recorded Confirmed Type htsqrbcg-exuszdfh-acgkq acid 400 1 tablet PO DAILY 05/11/19 09/27/22 History mcg-vit K 20 mcg-lycop 300 mcg tablet (One-A-Day Men's Multivitamin) ascorbate calcium (vitamin C) 500 1 g PO DAILY 02/16/21 09/27/22 History mg tablet atorvastatin 20 mg tablet 20 mg PO QHS #90 tabs 07/27/22 09/27/22 Rx losartan 25 mg tablet 25 mg PO DAILY #90 tabs 08/31/22 09/27/22 Rx metformin 500 mg tablet,extended 500 mg PO BID 09/07/22 09/27/22 History release 24 hr dorzolamide 22.3 mg-timolol 6.8 1 drp EACH EYE BID 09/27/22 09/27/22 History mg/mL eye drops pantoprazole 40 mg tablet,delayed 20 mg PO BID 09/27/22 09/27/22 History release Laboratory Tests 09/28/22 09/28/22 09/28/22 13:19 15:07 18:02 WBC RBC Hgb 7.3 L g/dL 7.2 L g/dL (14.0-18.0) (14.0-18.0) Hct 21.5 L % 21.1 L % (42.0-52.0) (42.0-52.0) MCV MCH MCHC RDW Plt Count MPV Sodium Potassium Chloride Carbon Dioxide Anion Gap BUN Creatinine Estim Creat Clear Calc Estimated GFR Glucose Calcium Iron 169 ug/dL (49-181) TIBC 265 ug/dL (265-497) % Saturation 64 H % (20-50) Alejandra Transferrin Receptr Pending Ferritin 114.00 ng/mL (11.1-264) Total Bilirubin AST ALT Alkaline Phosphatase Total Protein Albumin Vitamin B12 674.0 pg/mL (239-931) Folate 16.1 ng/mL (2.76->20) TSH (Reflex) 0.233 L uIU/mL (0.465-4.68) Free T4 1.05 ng/dL (0.78-2.19) Total T3 0.86 L NG/ML (0.97-1.69) Stl Occult Blood (IFOB) Blood Type Antibody Screen Crossmatch 09/29/22 09/29/22 09/29/22 00:24 05:48 06:32 WBC 7.4 K/mm3 (4.5-10.0) RBC 2.29 L M/mm3 (4.6-6.20) Hgb 7.6 L g/dL 7.0 L g/dL (14.0-18.0) (14.0-18.0) Hct 22.4 L % 21.0 L % (42.0-52.0) (42.0-52.0) MCV 91.7 fl (80-100) MCH 30.6 pg (26-34) MCHC 33.3 g/dl (32-36) RDW 13.2 % (11.5-14.5) Plt Count 183 k/mm3 (150-375) MPV 10.0 fl (7.4-10.4) Sodium 134 L mmol/L (137-145) Potassium 3.5 mmol/L (3.4-5.0) Chloride 112 H mmol/L (98-107) Carbon Dioxide 24 mmol/L (22-30) Anion Gap -2 L mmol/L (8-16) BUN 23 H D mg/dL (9-20) Creatinine 0.80 mg/dL (0.7-1.3) Estim Creat Clear Calc 65 ml/min Estimated GFR > 60 (59 - ) Glucose 139 H mg/dL (65-110) Calcium 7.3 L mg/dL (8.4-10.2) Iron TIBC % Saturation Alejandra Transferrin Receptr Ferritin Total Bilirubin 0.4 mg/dL (0.2-1.3) AST 23 U/L (17-59) ALT 25 U/L (6-50) Alkaline Phosphatase 39 U/L (38-126) Total Protein 5.0 L g/dL (6
[2022-09-29] MEDS: LACTATED RINGERS 1,000 ML 150 ML IV CONT (10:25)
--- NOTE | 2022-09-29 10:51 | PM.IMPN ---
Progress Note: A&P Assessment and Plan (1) Syncope and collapse: Code(s): R55 - Syncope and collapse Status: Acute Assessment and Plan: place in observation in Medical surgical floor IV fluids discontinued Echocardiogram pending CT head revealed normal aging brain He was found to have a hemoglobin and hematocrit of 11.2/32.9 that then dropped to 7.5/2.23 GI was consulted. EKG Rate 70 [place] 185 QRSd 98 QT 362 QTc 393 --[place]-- P 47 QRS -19 T 43 SINUS RHYTHM INCOMPLETE RIGHT BUNDLE BRANCH BLOCK BORDERLINE R WAVE PROGRESSION, ANTERIOR LEADS BORDERLINE ECG NO PREVIOUS ECG AVAILABLE FOR COMPARISON Electronically Signed On 09-27-2022 21:10:48 CDT by Tim Norton D.O. (2) Anemia: Code(s): D64.9 - Anemia, unspecified Status: Acute Assessment and Plan: He was found to have a hemoglobin and hematocrit of 11.2/32.9 that then dropped to 7.5/2.23 GI consulted and appreciate recommendations. Spoke to them on the phone and they have planned for EGD tomorrow morning. Anemia labs, occult stool ordered H&H q.[address] abdomen pelvis to assess for acute bleed. (3) Orthostasis: Code(s): I95.1 - Orthostatic hypotension Status: Acute Assessment and Plan: will hold losartan IV fluids Orthostatics Q shift (4) GERD (gastroesophageal reflux disease): Code(s): K21.9 - Gastro-esophageal reflux disease without esophagitis Status: Acute Assessment and Plan: Pantoprazole 40 mg IV Q 24 hours Status post upper endoscopy (5) Mild aortic stenosis: Code(s): I35.0 - Nonrheumatic aortic (valve) stenosis Status: Acute Assessment and Plan: follow-up in outpatient setting (6) Diastolic dysfunction: Code(s): I51.89 - Other ill-defined heart diseases Status: Acute Assessment and Plan: patient appears to be compensated (7) Diabetes mellitus: Qualifiers: Diabetes mellitus type: type 2 Diabetes mellitus half-way insulin use: without continuous churn buttermaker use Diabetes mellitus complication status: without complication Qualified Code(s): E11.9 - Type 2 diabetes mellitus without complications Code(s): E11.9 - Type 2 diabetes mellitus without complications Status: Acute Assessment and Plan: currently holding metformin insulin sliding scale as needed continue to monitor Subjective Date/time seen: 09/29/22 10:51 Interval history: No new complaints Exam Narrative: GENERAL: Comfortable, no acute distress HENMT: moist mucous membranes EYES: EOM intact b/l NECK: no lymphadenopathy RESPIRATORY: clear to auscultation CARDIO: RRR, tachycardia GI: soft, nontender, bowel sounds present SKIN: no rashes EXTREMITIES: no edema, redness or tenderness Objective Data Vital Signs Vital Signs: Vital Signs - 24 hr 09/28/22 12:00 09/28/22 14:00 09/28/22 16:00 Temperature 99.2 F Pulse Rate 118 H 103 H 103 H Respiratory Rate 20 Blood Pressure 111/55 L Pulse Oximetry 100 Oxygen Delivery 09/28/22 21:27 09/28/22 20:58 09/28/22 20:00 Temperature 98.2 F Pulse Rate 96 98 Respiratory Rate 18 Blood Pressure 121/68 Pulse Oximetry 100 Oxygen Delivery Room Air 09/29/22 00:00 09/29/22 04:00 09/29/22 06:00 Temperature 97.4 F L Pulse Rate 78 75 85 Respiratory Rate 16 Blood Pressure 113/63 Pulse Oximetry 100 Oxygen Delivery 09/29/22 09:05 09/29/22 08:00 09/29/22 08:00 Temperature 97.2 F L Pulse Rate 82 85 Respiratory Rate 18 Blood Pressure 125/60 Pulse Oximetry 100 Oxygen Delivery Room Air 09/29/22 10:33 09/29/22 10:40 Temperature Pulse Rate 82 66 Respiratory Rate 22 H 22 H Blood Pressure 61/28 L 79/41 L Pulse Oximetry 93 93 Oxygen Delivery Room Air Room Air Intake/Output Intake/Output: Intake & Output 09/26/22 09/27/22 09/28/22 09/29/22 23:59 23:59 23:59 23:59 Intake Total 1999 8993
--- NOTE | 2022-09-29 13:25 | PCCCNOTE ---
On 09/29/22, the student, [Beth Arana ], provided care and [email or web address] this [facility]. I have reviewed the student's documentation and agree with the findings.
[2022-09-29 16:50] LABS: Hematocrit 22.7 % (42.0-52.0); Hemoglobin 7.7 g/dL (14.0-18.0)
[2022-09-29] MEDS: ATORVASTATIN 20 MG TABLET PO (20:54)
[2022-09-30] VITALS: PULSE 76
[2022-09-30] MEDS: ACETAMINOPHEN 500 MG TABLET 1000 MG PO (00:15)
[2022-09-30 04:00] VITALS: PULSE 74
[2022-09-30 06:00] VITALS: BP 128/75; PULSE 80; RESP 18; TEMP 36.7; O2SAT 100
[2022-09-30 06:39] LABS: Hemoglobin 8.3 g/dL (14.0-18.0); Mean Corpuscular HGB Conc 34.6 g/dl (32-36); Mean Corpuscular Hemoglobin 31.2 pg (26-34); Mean Corpuscular Volume 90.2 fl (80-100); Mean Platelet Volume 10.1 fl (7.4-10.4); Platelet Count Result 174 k/mm3 (150-375); Red Blood Count 2.66 M/mm3 (4.6-6.20); Red Cell Distribution Width 13.7 % (11.5-14.5); White Blood Count 6.2 K/mm3 (4.5-10.0)
[2022-09-30 06:59] LABS: Anion Gap 5 mmol/L (8-16); Blood Urea Nitrogen 11 mg/dL (9-20); Calcium 7.6 mg/dL (8.4-10.2); Carbon Dioxide 22 mmol/L (22-30); Chloride 108 mmol/L (98-107); Estimated CRCL calculation 74 ml/min; Estimated Glomerular Filt Rate > 60; Glucose 155 mg/dL (65-110); Potassium 3.5 mmol/L (3.4-5.0); Sodium 135 mmol/L (137-145)
[2022-09-30] MEDS: DORZOLAMIDE/TIMOLOL OPHTH SOL 10 ML BOTTLE 1 DROP EACH EYE (08:43)
[2022-09-30] MEDS: PANTOPRAZOLE SODIUM IV 40 MG VIAL IV PUSH (08:43)
--- NOTE | 2022-09-30 11:11 | PM.DS ---
DS: Admitting Diagnosis Discharge Date September 30, 2022 Admitting Diagnosis GI bleed DS: Discharge Diagnosis Discharge Diagnosis (1) Syncope and collapse: Code(s): R55 - Syncope and collapse Status: Acute Assessment and Plan: place in observation in Medical surgical floor IV fluids discontinued Echocardiogram pending CT head revealed normal aging brain He was found to have a hemoglobin and hematocrit of 11.2/32.9 that then dropped to 7.5/2.23 GI was consulted. EKG Rate 70 [place] 185 QRSd 98 QT 362 QTc 393 --[place]-- P 47 QRS -19 T 43 SINUS RHYTHM INCOMPLETE RIGHT BUNDLE BRANCH BLOCK BORDERLINE R WAVE PROGRESSION, ANTERIOR LEADS BORDERLINE ECG NO PREVIOUS ECG AVAILABLE FOR COMPARISON Electronically Signed On 09-27-2022 21:10:48 CDT by Tim Norton D.O. (2) Anemia: Code(s): D64.9 - Anemia, unspecified Status: Acute Assessment and Plan: He was found to have a hemoglobin and hematocrit of 11.2/32.9 that then dropped to 7.5/2.23 GI consulted and appreciate recommendations. Spoke to them on the phone and they have planned for EGD tomorrow morning. Anemia labs, occult stool ordered H&H q.[address] abdomen pelvis to assess for acute bleed. (3) Orthostasis: Code(s): I95.1 - Orthostatic hypotension Status: Acute Assessment and Plan: will hold losartan IV fluids Orthostatics Q shift (4) GERD (gastroesophageal reflux disease): Code(s): K21.9 - Gastro-esophageal reflux disease without esophagitis Status: Acute Assessment and Plan: Pantoprazole 40 mg IV Q 24 hours Status post upper endoscopy (5) Mild aortic stenosis: Code(s): I35.0 - Nonrheumatic aortic (valve) stenosis Status: Acute Assessment and Plan: follow-up in outpatient setting (6) Diastolic dysfunction: Code(s): I51.89 - Other ill-defined heart diseases Status: Acute Assessment and Plan: patient appears to be compensated (7) Diabetes mellitus: Qualifiers: Diabetes mellitus type: type 2 Diabetes mellitus penitentiary insulin use: without termite control technician use Diabetes mellitus complication status: without complication Qualified Code(s): E11.9 - Type 2 diabetes mellitus without complications Code(s): E11.9 - Type 2 diabetes mellitus without complications Status: Acute Assessment and Plan: currently holding metformin insulin sliding scale as needed continue to monitor DS: Summary Hospital Course Hospital Course: Admitted for GI bleed. Patient had EEG which showed an ulcer. Ulcer was clipped. Patient will need to be on PPI b.i.d.. Follow-up with GI Time Spent with Patient Time attestation: Total time spent providing and/or coordinating discharge services: Exam Narrative: GENERAL: Comfortable, no acute distress HENMT: moist mucous membranes EYES: EOM intact b/l NECK: no lymphadenopathy RESPIRATORY: clear to auscultation CARDIO: RRR, tachycardia GI: soft, nontender, bowel sounds present SKIN: no rashes EXTREMITIES: no edema, redness or tenderness DS: Data Data Completed and Pending Labs on day of discharge: Labs from last 24 hours 09/30/22 09/29/22 09/29/22 05:51 16:37 08:08 WBC 6.2 RBC 2.66 L Hgb 8.3 L 7.7 L Hct 24.0 L 22.7 L MCV 90.2 MCH 31.2 MCHC 34.6 RDW 13.7 Plt Count 174 MPV 10.1 Sodium 135 L Potassium 3.5 Chloride 108 H Carbon Dioxide 22 Anion Gap 5 L BUN 11 D Creatinine 0.70 Estim Creat Clear Calc 74 Estimated GFR > 60 Glucose 155 H Calcium 7.6 L Blood Type B Positive Antibody Screen Negative Crossmatch See Detail Discharge Plan Discharge Attending physician on discharge: Lyndon Silva Consulting providers: Martin Velazquez Discharging Clinician: Lyndon Silva Patient Disposition: Home, Self-Care Activity: as tolera
[2022-10-05 12:43] LABS: Soluble Transferrin Receptor 0.71 mg/L (0.76-1.76)
== END 2022-09-30 12:12 | disposition home or self-care (01) | DRG 378 ==
LOC: ANHED 18:35 → ANH3MEDSUR 22:33
PROVIDERS: Internal Medicine Critical Care Medicine; Internal Medicine Gastroenterology; Nurse Practitioner; Admitting Provider Internal Medicine; Emergency Provider Emergency Medicine; PCP Family Medicine; Visit Provider Chiropractor
PROC: 0DJ08ZZ Inspection of Upper Intestinal Tract, Via Natural or Artificial Opening Endoscopic (ICD-10-PCS; CPT 43235; principal; 2022-09-29 12:30)
DX: K25.4 Chronic or unspecified gastric ulcer with hemorrhage (principal); D62 Acute posthemorrhagic anemia; I95.1 Orthostatic hypotension; E86.0 Dehydration; K21.9 Gastro-esophageal reflux disease without esophagitis; E11.9 Type 2 diabetes mellitus without complications; E78.5 Hyperlipidemia, unspecified; I35.0 Nonrheumatic aortic (valve) stenosis; H40.9 Unspecified glaucoma; I51.89 Other ill-defined heart diseases; R09.82 Postnasal drip
CPT/HCPCS: 36415; 36430; 70450; 71045; 74176; 80048; 80053; 81003; 82274; 82607; 82728; 82746; 83540; 83550; 83605; 83690; 83735; 84238; 84439; 84443; 84480; 84484; 85014; 85018; 85025; 85027; 85610; 85730; 86850; 86900; 86901; 86923; 88305; 93005; 93306; 96361; 96374; 96375; 96376; 99285; A9270; C9113; G0378; J2405; J2704; J7030; J7120; P9016

== ENCOUNTER 2022-10-04 09:16 | Outpatient (CLI) | payer MEDICARE, SELFPAY ==
[2022-10-04 13:52] LABS: Basophils Absolute Auto 0.1 K/mm3 (0.0-0.1); Basophils Percent Auto 0.8 % (0.2-1.2); Eosinophils Absolute Auto 0.2 K/mm3 (0-0.3); Eosinophils Percent Auto 2.5 % (0-4.4); Hematocrit 29.1 % (42.0-52.0); Hemoglobin 9.6 g/dL (14.0-18.0); Immature Granulocyte Absolute 0.04 K/mm3 (0.00-0.031); Immature Granulocyte Percent A 0.6 % (0-0.5); Lymphocytes Absolute Auto 1.95 K/mm3 (0.9-3.2); Lymphocytes Percent Auto 29.9 % (18.3-44.2); Mean Corpuscular Hemoglobin 30.7 pg (26-34); Mean Platelet Volume 10.3 fl (7.4-10.4); Monocytes Absolute Auto 0.4 K/mm3 (0.1-0.6); Monocytes Percent Auto 6.3 % (2.6-8.5); Neutrophils Absolute Auto 3.9 K/mm3 (1.3-6.7); Neutrophils Percent Auto 59.9 % (45.5-73.1); Nucleated Red Blood Cells Absolute Auto 0.1 K/mm3 (0.0-0.012); Nucleated Red Blood Cells Perc 0.9 % (0.0-0.2); Platelet Count Result 310 k/mm3 (150-375); Red Blood Count 3.13 M/mm3 (4.6-6.20); Red Cell Distribution Width 15.3 % (11.5-14.5); White Blood Count 6.5 K/mm3 (4.5-10.0)
== END 2022-10-04 09:17 | disposition home or self-care (01) ==
LOC: ANHGOSHLAB 09:18
PROVIDERS: PCP Family Medicine; Visit Provider Nurse Practitioner Family
DX: D64.9 Anemia, unspecified (principal)
CPT/HCPCS: 36415; 85025

== ENCOUNTER 2022-10-25 08:58 | Outpatient (CLI) | payer MEDICARE, SELFPAY ==
[2022-10-25 13:37] LABS: Basophils Absolute Auto 0.1 K/mm3 (0.0-0.1); Basophils Percent Auto 1.1 % (0.2-1.2); Eosinophils Absolute Auto 0.2 K/mm3 (0-0.3); Eosinophils Percent Auto 4.6 % (0-4.4); Hematocrit 37.6 % (42.0-52.0); Hemoglobin 11.9 g/dL (14.0-18.0); Lymphocytes Absolute Auto 1.97 K/mm3 (0.9-3.2); Lymphocytes Percent Auto 41.5 % (18.3-44.2); Mean Corpuscular HGB Conc 31.6 g/dl (32-36); Mean Corpuscular Hemoglobin 29.2 pg (26-34); Mean Corpuscular Volume 92.2 fl (80-100); Mean Platelet Volume 9.8 fl (7.4-10.4); Monocytes Absolute Auto 0.4 K/mm3 (0.1-0.6); Monocytes Percent Auto 8.2 % (2.6-8.5); Neutrophils Absolute Auto 2.1 K/mm3 (1.3-6.7); Neutrophils Percent Auto 44.6 % (45.5-73.1); Platelet Count Result 303 k/mm3 (150-375); Red Blood Count 4.08 M/mm3 (4.6-6.20); Red Cell Distribution Width 13.4 % (11.5-14.5); White Blood Count 4.8 K/mm3 (4.5-10.0)
== END 2022-10-25 08:59 | disposition home or self-care (01) ==
PROVIDERS: PCP Family Medicine; Visit Provider Family Medicine
DX: D62 Acute posthemorrhagic anemia (principal)
CPT/HCPCS: 36415; 85025

== ENCOUNTER 2022-11-11 11:50 | Outpatient (CLI) | payer MEDICARE, SELFPAY ==
[2022-11-11 17:21] LABS: Basophils Absolute Auto 0.1 K/mm3 (0.0-0.1); Basophils Percent Auto 0.9 % (0.2-1.2); Eosinophils Absolute Auto 0.3 K/mm3 (0-0.3); Eosinophils Percent Auto 4.3 % (0-4.4); Hematocrit 37.1 % (42.0-52.0); Hemoglobin 12.1 g/dL (14.0-18.0); Lymphocytes Absolute Auto 2.04 K/mm3 (0.9-3.2); Lymphocytes Percent Auto 34.9 % (18.3-44.2); Mean Corpuscular HGB Conc 32.6 g/dl (32-36); Mean Corpuscular Hemoglobin 28.9 pg (26-34); Mean Corpuscular Volume 88.5 fl (80-100); Mean Platelet Volume 10.2 fl (7.4-10.4); Monocytes Absolute Auto 0.6 K/mm3 (0.1-0.6); Monocytes Percent Auto 10.4 % (2.6-8.5); Neutrophils Absolute Auto 2.9 K/mm3 (1.3-6.7); Neutrophils Percent Auto 49.5 % (45.5-73.1); Platelet Count Result 322 k/mm3 (150-375); Red Blood Count 4.19 M/mm3 (4.6-6.20); Red Cell Distribution Width 13.1 % (11.5-14.5); White Blood Count 5.8 K/mm3 (4.5-10.0)
== END 2022-11-11 11:51 | disposition home or self-care (01) ==
PROVIDERS: PCP Family Medicine; Visit Provider Family Medicine
DX: D62 Acute posthemorrhagic anemia (principal)
CPT/HCPCS: 36415; 85025

== ENCOUNTER 2022-12-02 08:56 | Outpatient (CLI) | payer MEDICARE, SELFPAY ==
[2022-12-02 11:39] LABS: Basophils Absolute Auto 0.1 K/mm3 (0.0-0.1); Eosinophils Absolute Auto 0.3 K/mm3 (0-0.3); Hematocrit 40.7 % (42.0-52.0); Hemoglobin 13.1 g/dL (14.0-18.0); Immature Granulocyte Absolute 0.01 K/mm3 (0.00-0.031); Immature Granulocyte Percent A 0.2 % (0-0.5); Lymphocytes Absolute Auto 2.03 K/mm3 (0.9-3.2); Lymphocytes Percent Auto 39.3 % (18.3-44.2); Mean Corpuscular HGB Conc 32.2 g/dl (32-36); Mean Corpuscular Hemoglobin 27.8 pg (26-34); Mean Corpuscular Volume 86.2 fl (80-100); Monocytes Absolute Auto 0.4 K/mm3 (0.1-0.6); Monocytes Percent Auto 7.8 % (2.6-8.5); Neutrophils Absolute Auto 2.4 K/mm3 (1.3-6.7); Neutrophils Percent Auto 46.7 % (45.5-73.1); Platelet Count Result 300 k/mm3 (150-375); Red Blood Count 4.72 M/mm3 (4.6-6.20); Red Cell Distribution Width 12.9 % (11.5-14.5); White Blood Count 5.2 K/mm3 (4.5-10.0)
[2022-12-02 11:50] LABS: Alanine Aminotransferase 24 U/L (6-50); Albumin Level 3.9 g/dL (3.5-5.1); Alkaline Phosphatase 76 U/L (38-126); Anion Gap 7 mmol/L (8-16); Aspartate Amino Transferase 87 U/L (17-59); Bilirubin,Total 0.6 mg/dL (0.2-1.3); Blood Urea Nitrogen 15 mg/dL (9-20); Calcium 8.8 mg/dL (8.4-10.2); Carbon Dioxide 26 mmol/L (22-30); Chloride 101 mmol/L (98-107); Estimated Glomerular Filt Rate > 60; Glucose 126 mg/dL (65-110); Potassium 4.3 mmol/L (3.4-5.0); Sodium 134 mmol/L (137-145)
[2022-12-02 12:37] LABS: Hemoglobin A1C 6.3 % (<5.7)
[2022-12-02 13:54] LABS: Thyroid Stimulating Hormone Reflex 0.868 uIU/mL (0.465-4.68)
== END 2022-12-02 08:57 | disposition home or self-care (01) ==
PROVIDERS: PCP Family Medicine; Visit Provider Family Medicine
DX: R79.89 Other specified abnormal findings of blood chemistry (principal); D62 Acute posthemorrhagic anemia; E11.9 Type 2 diabetes mellitus without complications; E78.5 Hyperlipidemia, unspecified; I10 Essential (primary) hypertension; I51.89 Other ill-defined heart diseases
CPT/HCPCS: 36415; 80053; 83036; 84443; 85025

== ENCOUNTER 2023-01-31 11:31 | Outpatient (CLI) | payer MEDICARE, SELFPAY ==
[2023-01-31 19:38] LABS: Alanine Aminotransferase 24 U/L (6-50); Alkaline Phosphatase 79 U/L (38-126); Anion Gap 8 mmol/L (8-16); Aspartate Amino Transferase 50 U/L (17-59); Bilirubin,Total 0.6 mg/dL (0.2-1.3); Blood Urea Nitrogen 12 mg/dL (9-20); Calcium 8.6 mg/dL (8.4-10.2); Carbon Dioxide 26 mmol/L (22-30); Chloride 99 mmol/L (98-107); Estimated Glomerular Filt Rate > 60; Glucose 164 mg/dL (65-110); Potassium 3.9 mmol/L (3.4-5.0); Sodium 133 mmol/L (137-145)
== END 2023-01-31 11:32 | disposition home or self-care (01) ==
LOC: ANHGOSHLAB 11:32
PROVIDERS: PCP Family Medicine; Visit Provider Family Medicine
DX: R74.01 Elevation of levels of liver transaminase levels (principal)
CPT/HCPCS: 36415; 80053

== ENCOUNTER 2023-06-16 08:55 | Outpatient (CLI) | payer MEDICARE, SELFPAY ==
[2023-06-16 12:20] LABS: Basophils Absolute Auto 0.1 K/mm3 (0.0-0.1); Eosinophils Absolute Auto 0.2 K/mm3 (0-0.3); Eosinophils Percent Auto 4.2 % (0-4.4); Hematocrit 45.7 % (42.0-52.0); Hemoglobin 15.3 g/dL (14.0-18.0); Immature Granulocyte Absolute 0.02 K/mm3 (0.00-0.031); Immature Granulocyte Percent A 0.4 % (0-0.5); Lymphocytes Absolute Auto 1.86 K/mm3 (0.9-3.2); Lymphocytes Percent Auto 37.1 % (18.3-44.2); Mean Corpuscular HGB Conc 33.5 g/dl (32-36); Mean Corpuscular Hemoglobin 30.1 pg (26-34); Mean Corpuscular Volume 89.8 fl (80-100); Mean Platelet Volume 10.1 fl (7.4-10.4); Monocytes Absolute Auto 0.4 K/mm3 (0.1-0.6); Monocytes Percent Auto 8.4 % (2.6-8.5); Neutrophils Absolute Auto 2.5 K/mm3 (1.3-6.7); Neutrophils Percent Auto 48.9 % (45.5-73.1); Platelet Count Result 252 k/mm3 (150-375); Red Blood Count 5.09 M/mm3 (4.6-6.20)
[2023-06-16 12:30] LABS: Alanine Aminotransferase 26 U/L (6-50); Albumin Level 4.4 g/dL (3.5-5.1); Alkaline Phosphatase 70 U/L (38-126); Anion Gap 5 mmol/L (4-12); Aspartate Amino Transferase 94 U/L (17-59); Bilirubin,Total 0.7 mg/dL (0.2-1.3); Blood Urea Nitrogen 11 mg/dL (9-20); Calcium 9.1 mg/dL (8.4-10.2); Carbon Dioxide 30 mmol/L (22-30); Chloride 98 mmol/L (98-107); Cholesterol 126 mg/dL (0-200); Estimated Glomerular Filt Rate > 60; Glucose 131 mg/dL (65-110); HDL Direct 43 mg/dL; Sodium 133 mmol/L (137-145); Triglycerides 76 mg/dL (<150)
[2023-06-16 12:41] LABS: LDL Cholesterol Direct 65 mg/dL
[2023-06-16 12:55] LABS: Prostate Specific Antigen 1.3 ng/mL (< OR = 4.0)
[2023-06-16 12:57] LABS: Creatinine Urine 128.6 mg/dL
[2023-06-16 13:01] LABS: MALB Creatinine Ratio 51.6 mg/g (0-30); Microalbumin Urine Random 66.4 mg/L (0-16.7)
[2023-06-16 13:12] LABS: Hemoglobin A1C 7.1 % (<5.7)
[2023-06-16 14:37] LABS: Vitamin D 25 Hydroxy 59.2 ng/mL
== END 2023-06-16 08:56 | disposition home or self-care (01) ==
LOC: ANHGOSHLAB 08:55
PROVIDERS: PCP Family Medicine; Visit Provider Family Medicine
DX: E55.9 Vitamin D deficiency, unspecified (principal); E53.8 Deficiency of other specified B group vitamins; Z12.5 Encounter for screening for malignant neoplasm of prostate; E78.5 Hyperlipidemia, unspecified; R80.9 Proteinuria, unspecified; E11.9 Type 2 diabetes mellitus without complications; I10 Essential (primary) hypertension
CPT/HCPCS: 36415; 80053; 80061; 82043; 82306; 82607; 83036; 84153; 84443; 85025; G0103

== ENCOUNTER 2023-12-15 09:17 | Outpatient (CLI) | payer MEDICARE, SELFPAY ==
[2023-12-15 15:38] LABS: Alanine Aminotransferase 24 U/L (6-50); Albumin Level 4.2 g/dL (3.5-5.1); Alkaline Phosphatase 67 U/L (38-126); Anion Gap 7 mmol/L (4-12); Aspartate Amino Transferase 99 U/L (17-59); Bilirubin,Total 1.1 mg/dL (0.2-1.3); Blood Urea Nitrogen 12 mg/dL (9-20); Calcium 8.8 mg/dL (8.4-10.2); Carbon Dioxide 28 mmol/L (22-30); Chloride 98 mmol/L (98-107); Estimated Glomerular Filt Rate > 60; Glucose 121 mg/dL (65-110); Sodium 133 mmol/L (137-145)
[2023-12-15 16:03] LABS: Hemoglobin A1C 6.9 % (<5.7)
== END 2023-12-15 09:18 | disposition home or self-care (01) ==
PROVIDERS: PCP Family Medicine; Visit Provider Family Medicine
DX: E11.9 Type 2 diabetes mellitus without complications (principal); I10 Essential (primary) hypertension
CPT/HCPCS: 36415; 80053; 83036

== ENCOUNTER 2024-06-21 09:39 | Outpatient (CLI) | payer MEDICARE, SELFPAY ==
--- OUTSIDE RECORDS SUMMARY | 2024-06-21 10:05 | XMS_ITS | Clinical Summary ---
Author Organization [facility] Address [address], [facility] [address] [place] [address] Phone Care Team Providers Care Special Services Director Name Role Phone Virgil Garcia MD Primary Care Provider Rui Morris DO Unavailable [phone] Allergies No known active allergies Medications simvastatin (ZOCOR) 40 MG Tablet Take 40 mg by mouth Every other day. Active Multiple Vitamins-Mineral s (CENTRUM SILVER PO) Take by mouth daily. Active glucosamine-tanvir droitin 500-400 MG Capsule Take 1 Cap by mouth daily. Active Ascorbic Acid (VITAMIN C) 1000 MG Tablet Take by mouth daily. Active Immunizations Immunization Administration Dates Next Due Covid-19, Mrna, Lnp-s, PF, 1 00 mcg/0.5 mL Dose (Moderna) 06/03/2020,04/24/2020 Social History Tobacco Use Types Packs/Day Years Used Date Smoking Tobacco: Never Smokeless Tobacco: Never Alcohol Use Standard Drinks/Week Comments No 0 (1 standard drink = 0.6 oz pur e alcohol) Sex and Gender Information Value Date Recorded Sex Assigned at Not on file Legal Sex Male 11:02 AM CDT Gender Identity Not on file Sexual Orientation Not on file Plan of Treatment Health Maintenance Due Date Last Done Comments Hepatitis C Virus (HCV) Screening 1955 TdaP Immunization 1955 Cologuard 2004 Immunochemical Fecal Occult Blood 2004 PSA Discussion 2009 Pneumococcal Immunization (50+ years) (2 of 2 - PCV) 03/27/2021 03/27/2020 Influenza Immunization (#1) 11/20/202311/19, 12/17/2018, 12/01/2017 SARS-COV-2 Immunization (5 - season) 2023 08/27/2021, 01/22/2021, 06/03/2020, Additional history exists Colonoscopy 09/17/2025 09/18/2015 Colorectal Cancer Screening 09/17/2025 Respiratory Syncytial Virus (RSV) Immunization (Adult) (1 - 1-dose 75+ series) 2029 09/18/2015 Zoster Immunization Completed 12/03/2019, 8 Pneumococcal Immunization Combined Discontinued 03/27/2020 Hepatitis B Immunization Aged Out No longer eligible based on patient's age to complete this topic Meningococcal Immunization (ACWY) Aged Out No longer eligible based on patient's age to complete this topic Rotavirus Immunization Aged Out No lo nger eligible based on patient's age to complete this topic Procedures Procedure Name Priority Date/Time Associated Diagnosis Comments COLONOSCOPY Routine 09/18/2015 from Last 3 Months or Most Recently Relevant to Health Maintenance Results * HM COLONOSCOPY (09/18/2015) Virgil Garcia MD PROCEDURE/MINOR SURGICAL ORDRyanne HAYNES Final Result from Last 3 Months or Most Recently Relevant to Health Maintenance Care Teams Special Services Director Relationship Specialty Start Date End Date Virgil Garcia MD [address] [place] [id number] PCP - General Family Medicine 09/24/15 Rui Morris DO [address] [place] [id number] Gastroenterology 09/24/15
--- OUTSIDE RECORDS SUMMARY | 2024-06-21 10:05 | XMS_ITS | Referral Summary ---
Author Organization [facility] [place] [address] Address [address] [place] [address] Care Team Providers Care Dining Car Server Name Role Phone Salvador Ayala MD Primary Care Provider Allergies Active Allergy Reactions Criticality Noted Date Comments Grass Pollen-Perennial [place], Standard Eye irritation Low 07/01/2022 Medications atorvastatin (LIPITOR) 20 mg tablet Take by mouth 9 Active losartan (COZAAR) 25 mg tablet Take 1 tablet (25 mg total) by mouth daily 3 Active metFORMIN (GLUCOPHAGE) 500 mg tablet Take 1 tablet (500 mg total) by mouth 2 (two) times a day with meals [address] (PROTONIX) 20 mg EC tablet Take 1 tablet (20 mg total) by mouth 2 (two) times a day 60 tablet 3 3 Active ascorbic acid (vitamin C) 1,000 mg tablet Take 1 tablet (1,000 mg total) by mouth daily 0 Active latanoprost (XALATAN) 0.005 % ophthalmic solution Administer 1 drop into both eyes nightly 3 Active multivitamin tablet Take 1 tablet by mouth daily 9 Active budesonide (PULMICORT) 0.5 mg/2 mL nebulizer solution Mix 1 capsule/ampule in 250 mL of saline irrigations (NeAVIcodeMed Sinus Rinse Bottle) and irrigate each nostril with half of the bottle twice daily. 120 mL 3 4 Active OneTouch Verio test strips strip USE TO CHECK BLOOD SUGARS EVERY DAY DIRECTED 4 Active OneTouch Delica Plus Lancet 30 gauge misc USE TO CHECK BLOOD SUGAR ONCE A DAY 4 Active timolol (TIMOPTIC OCUDOSE) 0.25 % dropperette Administer 1 drop into both eyes daily Active Active Problems Problem Noted Date Diagnosed Date Vertigo of central origin, unspecified lateralit y 11/28/2023 Multiple nasal polyps 09/08/2023 Chronic pansinusitis 09/08/2023 Tinnitus 09/08/2023 Social History Tobacco Use Types Packs/Day Years Used Date Smoking Tobacco: Never Smokeless Tobacco: Never Tobacco Cessation:Counseling Given: Not Answered Sex and Gender Information Value Date Recorded Sex Assigned at Not on file Legal 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 Gender Identity Male 06/30/2022 7:56 AM CDT Sexual Orientation Not on file Last Filed Vital Signs Vital Sign Reading Time Taken Comments Blood Pressure 144/74 02/23/2024 9:54 AM CAR COUPLER Pulse 76 02/23/2024 9:54 AM CAR COUPLER Temperature 36.5 C (97.7 F) 02/23/2024 9:54 AM CAR COUPLER Respiratory Rate 16 02/23/2024 9:54 AM CAR COUPLER Oxygen Saturation 98% 02/23/2024 9:54 AM CAR COUPLER Inhaled Oxygen Concentration - - Weight 65 kg (143 lb 6.4 oz) 02/23/2024 9:54 AM CAR COUPLER Height 162.6 cm (5' 4 ) 02/23/2024 9:54 AM CAR COUPLER Body Mass Index 24.61 02/23/2024 9:54 AM CAR COUPLER Plan of Treatment Not on file Insurance [facility] MEDIC[facility] Address: [address] [place] [id number] [facility] MEDICARE [facility] Address: [address] [address] [facility]IC[facility] Address: [address] [place] [phone] Care Teams Dining Car Server Relationship Specialty Start Date End Date Salvador Ayala MD PCP - General Family Practice 05/30/18
--- OUTSIDE RECORDS SUMMARY | 2024-06-21 10:05 | XMS_ITS | Clinical Summary ---
Author Organization [facility] [address] Address [address] [place] [address] Care Team Providers Care Risk Control Specialist Name Role Phone Salvador Ayala MD Primary Care Provider Allergies Active Allergy Reactions Criticality Noted Date Comments Grass Pollen-Perennial [place], Standard Eye irritation Low 07/01/2022 Medications atorvastatin [...] capsule/ampule in 250 mL of saline irrigations (NeShopSueyMed Sinus Rinse Bottle) and irrigate each nostril [...] polyps 09/08/2023 Chronic pansinusitis 09/08/2023 Tinnitus 09/08/2023 Surgical History Surgery Date Site/Laterality Comments COLONOSCOPY Medical History Medical History Date Comments Sinusitis GERD (gastroesophageal reflux disease) Tinnitus Diabetes mellitus (HCC) Family History Medical History Relation Name Comments Diabetes Father Asad Rouse Relation Name Status Comments Father Asad Rouse Social History Tobacco Use Types Packs/Day Years Used Date Smoking Tobacco: Never Smokeless Tobacco: Never Tobacco Cessation:Counseling Given: Not Answered Sex and Gender Information Value Date Recorded Sex Assigned at Not on file 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 Gender Identity Male 06/30/2022 7:56 AM CDT Sexual Orientation Not on file Obstetrics History Last Filed Vital Signs Vital Sign Reading Time Taken Comments Blood Pressure 144/74 02/23/2024 9:54 AM ADJUNCT PROFESSOR OF [employer] Pulse 76 02/23/2024 9:54 AM ADJUNCT PROFESSOR OF [employer] Temperature 36.5 C (97.7 F) 02/23/2024 9:54 AM ADJUNCT PROFESSOR OF [employer] Respiratory Rate 16 02/23/2024 9:54 AM ADJUNCT PROFESSOR OF [employer] Oxygen Saturation 98% 02/23/2024 9:54 AM ADJUNCT PROFESSOR OF [employer] Inhaled Oxygen Concentration - - Weight 65 kg (143 lb 6.4 oz) 02/23/2024 9:54 AM ADJUNCT PROFESSOR OF [employer] Height 162.6 cm (5' 4 ) 02/23/2024 9:54 AM ADJUNCT PROFESSOR OF [employer] Body Mass Index 24.61 02/23/2024 9:54 AM ADJUNCT PROFESSOR OF [employer] Plan of Treatment Health Maintenance Due Date Last Done Comments Colon Cancer Screening-Colonoscopy 1954 Depression Screening 1954 Fall Risk Assessment 1954 Hepatitis C Screening 1954 Prostate Cancer Screening-PSA 1954 Hepatitis B Screening 1972 Well Visit 65+ 10/10/2019 Pneumococcal vaccine 65+ (2 of 2 - PCV) 03/27/2021 03/27/2020 Covid-19 Vaccine (2023-2 5 season) 2023 03/25/2022, 08/27/2021, 01/22/2021, Additional history exists Influenza Vaccine (#1) 2023 , 12/15/2020, 12/03/2019, Additional history exists DTaP/Tdap/Td Vaccine (2 - Td or Tdap) 04/10/2031 04/10/2021 Zoster Vaccine Completed 12/03/2019, 12/01/2017 Insurance [facility] MEDICARE [facility] Address: [address] [address] [facility] MEDIC[facility] Address: [facility] [address] [place] [address] [facility] MEDICARE [facility] Address: [address] [address] Care Teams Risk Control Specialist Relationship Specialty Start Date End Date Salvador Ayala MD PCP - General Family Practice 05/30/18
--- OUTSIDE RECORDS SUMMARY | 2024-06-21 10:05 | XMS_ITS | CONTINUITY OF CARE DOCUMENT ---
Author Name gogo ellenyves Address Unknown Organization [facility] Office Address [address] [place] [address] Phone [phone] Care Team Providers Care Brass Buffer Name Role Phone Herve Padilla MD Unavailable Salvador Ayala MD Unavailable PROBLEMS Condition Status Date Provider Notes IRBBB active Herve Padilla MD Valvular heart disease active Herve Padilla MD Diastolic dysfunction active Herve Padilla MD Screening active Herve Padilla MD Hyperlipidemia active Herve Padilla MD PREDIABETES active Herve Padilla MD ENCOUNTERS Date Type Provider Location Encounter Diag nosis - In-person encounter Office Visit Herve Padilla MD [place] [facility] IRBBBValvular heart diseaseDiastolic dysfunctionScreeningHyperlipidemiaPREDIABETES VITAL SIGNS Date Observation Value Provider Body Mass Index (Ratio) 24.71 kg/m2 Berny Padilla MD blood pressure, cuff size regular Cy araseli Perkins blood pressure, diastolic 70 mm[Hg] Cy araseli Perkins blood pressure, systolic 120 mm[Hg] Kasia Perkins oxygen saturation, oximetry 98 % Adina Perkins respiratory rate E&M 16 /min Adina Perkins pulse rate 82 /min Adina singh weight E&M 144 [lb_av] Adina singh height E&M 64 [in_i] Adina singh ALLERGIES No Known Drug Allergies HISTORY OF MEDICATION USE Medication Status Instructions Dates Provider Indications Com ments METFORMIN HCL 500 MG ORAL TABLET active twice a day Herve Padilla MD WELCHOL PACKET active Mix 1 pack in 4- 8 oz. of water, fruit juice, or diet soft drink once daily. Take with a meal. Herve Padilla MD WELCHOL 625 MG ORAL TABLET active 3 TABS TWICE DAILY Herve Padilla MD ASPIRIN ADULT LOW DOSE 81 MG ORAL TABLET DELAYED RELEASE active One Tab By Mouth Daily Herve Padilla MD VITAMIN C TABLET active Take 1 tablet every other day Adina Perkins [facility] FISH OIL CAPSULE active Take 1 tablet a day Adina Perkins ATORVASTATIN CALCIUM 20 MG ORAL TABLET active Take 1 tablet a day Adina Perkins SOCIAL HISTORY Date Observation Value Provider social history E&M S moking History: Nereyda brown has never smoked. Herve Padilla MD social history reviewed E&M revi ewed - no changes required Herve Padilla MD smoking status Never smoker Adina moser FAMILY HISTORY Family Member Condition Father Family History of Di abetes: Father Family History of Hy pertension: Mother Family History of Hy pertension: Mother Family History of Di abetes: INSURANCE PROVIDERS Payer name Policy type / Coverage type [facility] ID [employer] Other [id number] ADVANCE DIRECTIVES Name Date DISCUSSED - NO DECISION MADE TREATMENT PLAN Date Name Performer Cardiology New Patient Herve garibay MD Cardiology New Patient Herve garibay MD Cardiology New Patient :neg tsh and psa Herve Padilla MD Cardiology New Patient Herve garibay MD Cardiology New Patie nt :mild as, mild mr , tr and pr and ai Herve Padilla MD Date Name Stress Routine Complete Echo CT, Coronary Calcium Score HISTORY OF PROCEDURES Procedure Date Procedure Name Provider Procedure Notes S tatus CT- Coronary CA score Herve Padilla MD completed [place] Padilla MD complete d
[2024-06-21 10:28] LABS: Basophils Absolute Auto 0.1 K/mm3 (0.0-0.1); Basophils Percent Auto 1.1 % (0.2-1.2); Eosinophils Absolute Auto 0.2 K/mm3 (0-0.3); Eosinophils Percent Auto 3.5 % (0-4.4); Hematocrit 44.7 % (42.0-52.0); Hemoglobin 15.4 g/dL (14.0-18.0); Immature Granulocyte Absolute 0.01 K/mm3 (0.00-0.031); Immature Granulocyte Percent A 0.2 % (0-0.5); Lymphocytes Absolute Auto 1.96 K/mm3 (0.9-3.2); Mean Corpuscular HGB Conc 34.5 g/dl (32-36); Mean Corpuscular Hemoglobin 30.7 pg (26-34); Mean Corpuscular Volume 89.2 fl (80-100); Mean Platelet Volume 9.6 fl (7.4-10.4); Monocytes Absolute Auto 0.4 K/mm3 (0.1-0.6); Monocytes Percent Auto 9.4 % (2.6-8.5); Neutrophils Percent Auto 42.8 % (45.5-73.1); Platelet Count Result 259 k/mm3 (150-375); Red Blood Count 5.01 M/mm3 (4.6-6.20); Red Cell Distribution Width 12.7 % (11.5-14.5); White Blood Count 4.6 K/mm3 (4.5-10.0)
[2024-06-21 11:39] LABS: Hemoglobin A1C 6.5 % (<5.7)
[2024-06-21 12:03] LABS: Alanine Aminotransferase 24 U/L (6-50); Albumin Level 4.3 g/dL (3.5-5.1); Alkaline Phosphatase 68 U/L (38-126); Anion Gap 8 mmol/L (4-12); Aspartate Amino Transferase 54 U/L (17-59); Blood Urea Nitrogen 13 mg/dL (9-20); Calcium 8.7 mg/dL (8.4-10.2); Carbon Dioxide 28 mmol/L (22-30); Chloride 99 mmol/L (98-107); Cholesterol 137 mg/dL (0-200); Estimated Glomerular Filt Rate > 60; Glucose 117 mg/dL (65-110); HDL Direct 45 mg/dL; Potassium 4.4 mmol/L (3.4-5.0); Sodium 135 mmol/L (137-145); Triglycerides 87 mg/dL (<150)
[2024-06-21 12:16] LABS: LDL Cholesterol Direct 65 mg/dL
[2024-06-21 12:35] LABS: Prostate Specific Antigen 1.1 ng/mL (< OR = 4.0)
[2024-06-21 12:45] LABS: Vitamin D 25 Hydroxy 44.5 ng/mL
[2024-06-21 13:39] LABS: Creatinine Urine 81.5 mg/dL
[2024-06-21 13:43] LABS: Microalbumin Urine Random 58.7 mg/L (0-16.7)
== END 2024-06-21 09:40 | disposition home or self-care (01) ==
PROVIDERS: PCP Family Medicine; Visit Provider Family Medicine
DX: R00.2 Palpitations (principal); E11.9 Type 2 diabetes mellitus without complications; I10 Essential (primary) hypertension; E78.5 Hyperlipidemia, unspecified; E53.8 Deficiency of other specified B group vitamins; E55.9 Vitamin D deficiency, unspecified; Z12.5 Encounter for screening for malignant neoplasm of prostate
CPT/HCPCS: 36415; 80053; 80061; 82043; 82306; 82607; 83036; 84153; 84443; 85025; G0103

== ENCOUNTER 2025-01-02 08:52 | Outpatient (CLI) | payer MEDICARE, SELFPAY ==
--- OUTSIDE RECORDS SUMMARY | 2025-01-02 09:38 | XMS_ITS | Clinical Summary ---
Author Organization [facility] [place] [address] Address [address] [place] [address] Care Team Providers Care Risk Management Consultant Name Role Phone Salvador Ayala MD Primary Care Provider Allergies Active Allergy Reactions Criticality Noted Date Comments Grass Pollen-Perennial [place], Standard Eye irritation Low 07/01/2022 Medications atorvastatin [...] 1 tablet by mouth daily 9 Active OneTouch Verio test strips strip USE TO CHECK BLOOD SUGARS EVERY DAY DIRECTED 4 Active OneTouch Delica Plus Lancet 30 gauge misc USE TO CHECK BLOOD SUGAR ONCE A DAY 4 Active timolol (TIMOPTIC OCUDOSE) 0.25 % dropperette Administer 1 drop into both eyes daily Active budesonide (PULMICORT) 0.5 mg/2 mL nebulizer solution Mix 1 capsule/ampule in 250 mL of saline irrigations (NeWebStart BristolMed Sinus Rinse Bottle) and irrigate each nostril with half of the bottle twice daily. 120 mL 3 Active Active Problems Problem Noted Date Diagnosed Date Vertigo of central origin, unspecified lateralit y 11/28/2023 Multiple nasal polyps 09/08/2023 Chronic pansinusitis 09/08/2023 Tinnitus 09/08/2023 Surgical History Surgery Date Site/Laterality Comments COLONOSCOPY Medical History Medical History Date Comments Sinusitis GERD (gastroesophageal reflux disease) Tinnitus Diabetes mellitus Family History Medical History Relation Name Comments Diabetes Father Asad Rouse Relation Name Status Comments Father Asad Rouse Social History Tobacco Use Types Packs/Day Years Used Date Smoking Tobacco: Never Smokeless Tobacco: Never Tobacco Cessation:Counseling Given: Not Answered Sex and Gender Information Value Date Recorded Sex Assigned at Not on file Legal Sex 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 Gender Identity Male 06/30/2022 7:56 AM CDT Sexual Orientation Not on file Obstetrics History Last Filed Vital Signs Vital Sign Reading Time Taken Comments Blood Pressure 144/74 02/23/2024 9:54 AM CERTIFIED SUBSTANCE ABUSE COUNSELOR Pulse 76 02/23/2024 9:54 AM CERTIFIED SUBSTANCE ABUSE COUNSELOR Temperature 36.5 C (97.7 F) 02/23/2024 9:54 AM CERTIFIED SUBSTANCE ABUSE COUNSELOR Respiratory Rate 16 02/23/2024 9:54 AM CERTIFIED SUBSTANCE ABUSE COUNSELOR Oxygen Saturation 98% 02/23/2024 9:54 AM CERTIFIED SUBSTANCE ABUSE COUNSELOR Inhaled Oxygen Concentration - - Weight 65 kg (143 lb 6.4 oz) 02/23/2024 9:54 AM CERTIFIED SUBSTANCE ABUSE COUNSELOR Height 162.6 cm (5' 4) 02/23/2024 9:54 AM CERTIFIED SUBSTANCE ABUSE COUNSELOR Body Mass Index 24.61 02/23/2024 9:54 AM CERTIFIED SUBSTANCE ABUSE COUNSELOR Plan of Treatment Health Maintenance Due Date Last Done Comments Colon Cancer Screening-Colonoscopy 1954 Depression Screening 1954 Fall Risk Assessment 1954 Hepatitis C Screening 1954 Hepatitis B Screening 1972 Abdominal Aortic Aneurysm (A AA) Screen 10/10/2019 Well Visit 65+ 10/10/2019 Pneumococcal vaccine 65+ (2 of 2 - PCV) 03/27/2021 03/27/2020 Covid-19 Vaccine (6 - 2024-2 6 season) 2024 03/25/2022, 08/27/2021, 01/22/2021, Additional history exists Influenza Vaccine (#1) 2024 , 12/15/2020, 12/03/2019, Additional history exists DTaP/Tdap/Td Vaccine (2 - Td or Tdap) 04/10/2031 04/10/2021 Zoster Vaccine Completed 12/03/2019, 12/01/[address] [facility] MEDICARE ADVANTAGE [facility] MEDIC[facility] Address: [address] [address] [employer] MEDICARE ADVANTAGE [facility] MEDICARE Address: [facility] [address] [place] [address] [facility] MEDICARE AD[facility]ANTAGE [facility] MEDIC[facility] Address: [facility] [address] [place] [address] Care Teams Risk Management Consultant Relationship Specialty Start Date End Date Salvador Ayala MD PCP - General Family Practice 05/30/18
--- OUTSIDE RECORDS SUMMARY | 2025-01-02 09:38 | XMS_ITS | Clinical Summary ---
Author Organization [facility] Address [address], [facility] [address] [place] [address] Phone Care Team Providers Care Supervisor Public Health Nursing Name Role Phone Virgil Garcia MD Primary Care Provider [phone] Rui Morris DO Unavailable [phone] Allergies No known active allergies Medications simvastatin [...] (HCV) Screening 1954 TdaP Immunization 1954 Cologuard 10/10/1999 Immunochemical Fecal Occult Blood 10/10/1999 Pneumococcal Immunization (50+ years) (2 of 2 - PCV) 03/27/2021 03/27/2020 Influenza Immunization (#1) 11/19/202411/19, 12/17/2018, 12/01/2017 SARS-COV-2 Immunization (5 - season) 2024 08/27/2021, 01/22/2021, 06/03/2020, Additional history exists Colonoscopy 09/17/2025 09/18/2015 Colorectal Cancer Screening 09/17/2025 Respiratory Syncytial Virus (RSV) Immunization (Adult) (1 - 1-dose 75+ series) 2029 Zoster Immunization Completed 12/03/2019, 8 Pneumococcal Immunization Combined Discontinued 03/27/2020 Hepatitis B Immunization Aged Out No longer eligible based on patient's age to complete this topic Human Papillomavirus (HPV) Immunization Aged Out No longer eligible based [...] COLONOSCOPY (09/18/2015) Virgil Garcia MD PROCEDURE/MINOR SURGICAL ORDE [place] Final Result from Last 3 Months or Most Recently Relevant to Health Maintenance Care Teams Supervisor Public Health Nursing Relationship Specialty Start Date End Date Virgil Garcia MD [address] [place] [id number] PCP - General Family Medicine 09/24/15 Rui Morris DO [address] [place] [id number] Gastroenterology 09/24/15
[2025-01-02 13:11] LABS: Alanine Aminotransferase 29 U/L (6-50); Albumin Level 4.0 g/dL (3.5-5.1); Alkaline Phosphatase 69 U/L (38-126); Anion Gap 7 mmol/L (4-12); Aspartate Amino Transferase 56 U/L (17-59); Bilirubin,Total 0.9 mg/dL (0.2-1.3); Blood Urea Nitrogen 15 mg/dL (9-20); Calcium 8.8 mg/dL (8.4-10.2); Carbon Dioxide 25 mmol/L (22-30); Chloride 101 mmol/L (98-107); Estimated Glomerular Filt Rate > 60; Glucose 116 mg/dL (65-110); Potassium 4.2 mmol/L (3.4-5.0); Sodium 133 mmol/L (137-145); Total Protein 7.2 g/dL (6.3-8.2)
[2025-01-02 18:09] LABS: Hemoglobin A1C 6.2 % (<5.7)
== END 2025-01-02 08:53 | disposition home or self-care (01) ==
PROVIDERS: PCP Family Medicine; Visit Provider Family Medicine
DX: E11.9 Type 2 diabetes mellitus without complications (principal); I10 Essential (primary) hypertension
CPT/HCPCS: 36415; 80053; 83036